=== PATIENT | male | born 1950 | race Caucasian/White ===

== ENCOUNTER 2022-05-17 14:12 | Emergency (ER) | payer OTHER ==
--- OUTSIDE RECORDS SUMMARY | 2022-05-17 14:19 | XMS REPORT | Continuity of Care Document ---
:1950 Author Organization [facility] t Address [address] [place] [address] Care Team Providers Name Role Phone HELLEN MADRIGAL Primary Care Physician Unavailable STEVIE MENDEZ Attending Clinician Unavailable Sosa Cuenca MD Attending Clinician Sosa Contreras RN Attending Clinician Unavailable Cassidy Flaherty RN Attending Clinician Unavailable Nenita Hurst MA Attending Clinician Unavailable Thee Flaherty MD Attending Clinician Mayco Ruby MD Attending Clinician Eve Santiago LVN Attending Clinician Unavailable Radha Oviedo Attending Clinician Wilfrido Villalobos MD Attending Clinician Hal Kaur MD Attending Clinician ELVA OLMEDO Attending Clinician Unavailable Frida Iglesias RN Attending Clinician Unavailable Sera Vasques DPM Attending Clinician Marlene Rodriguez MD Attending Clinician Becky Crawford Attending Clinician Unavailable Elisa Rosen MA Attending Clinician Unavailable Luzma Grover MA Attending Clinician Unavailable Arlene SLAUGHTER, Agustín Attending Clinician Elijah SLAUGHTER, Rashad Attending Clinician Preston SLAUGHTER, Ravinder Attending Clinician Yanira SLAUGHTER, Ashley Espana Attending Clinician Arsh SLAUGHTER, Deisi De Guzman Attending Clinician Payal SLAUGHTER, Dennis Haskins Attending Clinician Herbert SLAUGHTER, Jessica Ayala Attending Clinician Mickey SLAUGHTER, Jez Hilton Attending Clinician MD DEISI CABAN Attending Clinician Unavailable Provider, Unknown Attending Clinician Unavailable MD RASHAD NAVA Attending Clinician Unavailable Renée Medina MA Attending Clinician Unavailable Kashmir MURILLO, Jyoti Attending Clinician Unavailable Yanira SLAUGHTER, Elva Quiroz Attending Clinician MILAN MARTINEZ Attending Clinician Unavailable SEBLE CASTANEDA Attending Clinician Unavailable JADEN EVANS Attending Clinician Unavailable KOSTAS JEROME Attending Clinician Unavailable FUENTES PELAEZ M.D. Attending Clinician Unavailable RACHELL MORALES Attending Clinician Unavailable DEISI CABAN Admitting Clinician Unavailable MD ASHLEY OLMEDO Admitting Clinician Unavailable MD RASHAD NAVA Admitting Clinician Unavailable JADEN EVANS Admitting Clinician Unavailable RAVINDER JOHNSTON Admitting Clinician Unavailable RACHELL MORALES Admitting Clinician Unavailable Payers Payer Name Policy Type Policy Number Effective Date Expiration Date S agustin MEDICARE PART A [id number] \\[id number]\\ [id number] - MEDICARE MEDIGAP - [employer]UTUAL [id number] 2014 [place] 00:00:00 [place] [id number] [facility] TRUE CHOICE MEDIGAP-GENERIC - [id number] 2006 GENERIC PAYOR 00:00:00 Problems Condition Condition Condition Status Onset Resolution Last Treating Co mments Source Name Details Category Date Date Treatment Clinician Date Right Right Disease Active [facility] wrist pain wrist pain 2-04 [facility] 00:[facility] Hospita 00 l Bradycardi Bradycardi Disease Active Overview : Methodi a a 06-[address] 00:00: g of this Hospita 00 note l might be different from the original. Images from the original note were not included. 06/30/[address] Flaherty Septic Septic Disease Active [facility]i arthritis arthritis 06-25 st 00:00: Hospita 00 l Osteopenia Osteopenia Disease Active M ethodi 06-25 st 00:00: Hospita 00 l Vitamin D Vitamin D Disease Active Met hodi deficiency deficiency 06-25 00:00: Hospita 00 l Vasculopat Vasculopat Disease Active Overview : Methodi hy of hy of 06-[address] cardiac cardiac 00:00: g of this Hospi ta allograft allograft 00 note l might be different from the original. Added automatic ally from request for surgery [id number] Abnormal Abnormal Disease Active Overview: Me thodi findings findings 06-[address] on on 00:00: g of this Hospita diagnostic diagnostic 00 note l imaging of imaging of might be heart and heart and different coronary coronary from the circulatio circulatio original. n n Added automatic ally from request for surgery [id number] Syncope Syncope Disease Active Overview: Meth ernestine 06-[address] 00:00: g of this Hospita 00 note l might be different from the original. Added automatic ally from request for surgery [id number] Pyogenic Pyogenic Disease Active Overview: Me thodi arthritis arthritis 06-18 Formattin s t of right of right 00:00: g of this Hos freddy wrist wrist 00 note l might be different from the original. Added automatic ally from request for surgery [id number] Complicati Complicati Disease Active 2018-05 M ethodi on of on of 06-26 st internal internal 00:00: Hospit a right hip right hip 00 l prosthesis prosthesis Elevated Elevated Disease Active Metho di ferritin ferritin 18 st 00:00: Hospita 00 l Age-relate Age-relate Disease Active Overview : Methodi d d 3-[address] osteoporos osteoporos 00:00: g of this Hospita is without is without 00 note l current current might be pathologic pathologic different al al from the fracture fracture original. dexa - osteoporo sis; has severe back issues; He has d/w Neurosx - Dr. Salinas - ? forteoLas t Assessmen t & Plan: Formattin g of this note might be different from the original. Recommend given his multiple co-morbid ities and renal and liver complicat ions to see Dr. Hennessy - Endocrine for evaluatio n of osteoporo sis. Diabetic Diabetic Disease Active 2017-05 Overview: Me thodi polyneurop polyneurop 06-[address] athy athy 00:00: g of this Hospita associated associated 00 note l with type with type might be 2 diabetes 2 diabetes different mellitus mellitus from the original. Not on lyrica s/s to liver and kidney issuesHav ing issues with balance and foot dropLidoc sari at night helps someHas seen neurology - Dr. Piedra - EMG done - and states no solution offeredLa st Assessmen t & Plan: Formattin g of this note might be different from the original. Diabetic shoes and inserts ordered. Foot exam verified by ortho. Ventral Ventral Disease Active Overview: Meth ernestine hernia hernia 11-[address] without without 00:00: g of this Hospi ta obstructio obstructio 00 note l n or n or might be gangrene gangrene different from the original. Trying to wear brace but it is uncomfort able; per his hepatolog ist monitor. Anemia of Anemia of Disease Active 2016-05 Overview: Methodi renal renal 06-[address] disease disease 00:00: g of this Hospi ta 00 note is l different from the original. Lab Results Component Value Date WBC 5.65 8 HGB 12.3 (L) 8 HCT 37.1 (L) 8 MCV 100.5 (H) 8 PLT 213 8 Heart Heart Disease Active Overview: [facility] Hospita orthotopic orthotopic 00 note is l , status , status different from the original. 01/18/2005 Heart-Yoly er transplan t Hemochrom atosisMon o regimen -FKStage 3 CRFImmuno : FK onlyVisit Date Biopsy C4D Treatment Misc & Echo Level 11/25/19 Normal cath no significa nt disease Chest Pain 06/18/20 ClinicA-M ap A-Sure 291.7 BNP 151, SCR 1.36/GFR 52Pt refuses to increase tachBardy monitor Neg for dysrythmi a Eco 60-64 3.2 0.5 BID Light headness 07/15/20 Lab/echoA -[facility] e 321.2 C/o lighthead ness & passing out? BNP 306, Scr 1.34/GFR 53, DSA pendingEK G -NSR at 93, FK ^ Patient refuses to increase FK nor to take prophylac tics. 60-64 mild TR & MRDSAs-ne w Possible 2.6 on FK 0.5BID 06/17/21Ad mitPost cath Call rec/ /07/18/21 Pre-labsR t/Lft CatBX 0 ROrtho ->PM surgD/C Hmecho c BXsurg Patient to proceed with cath/ had black-out BNP 148, Scr 1.51 / GFR 46: Clean Left cath, no noted vasculopa thy nor blockages . Pt. Admitted for ILP recorder for determina tion of pacemaker . Developed severe gout while hospitali zed & R wrist arthrocen tesis performed 06/24/21Bos ton Scientifi c dull chamber pacemaker NasirBP-> amlodipin e & hydralazi ne 60-64 3.2 Echo/DEXA Scan Last Assessmen t & Plan: Formattin g of this note might be different from the original. Follow up with cards for yearly follow up. Immunosupp Immunosupp Disease Active Overview : Methodi ression ression 1-[address] 00:00: g of this Hospita 00 note l might be different from the original. S/s to transplan t on prograf HLD HLD Disease Active Overview: Method i (hyperlipi (hyperlipi 1-[address] demia) demia) 00:00: g of this Hospita 00 note is l different from the original. Not on statin. The 10-year ASCVD risk score (Alexander JHONATHAN Jr., et al., 2013) is: 14.9% Values used to calculate the score: Age: 67 years Sex: Male Is Non-Hispa claire : Yes Diabetic: Yes Tobacco smoker: No Systolic Blood Pressure: 116 mmHg Is BP treated: No HDL Cholester ol: 71 mg/dL Total Cholester ol: 180 mg/dLLab Results Component Value Date CHOLTOTAL 180 8 CHOLTOTAL 196 7 CHOLTOTAL 195 6 Lab Results Component Value Date HDL 71 8 HDL 86 8 HDL 65 7 Lab Results Component Value Date LDLCHOLCA LC 95 8 LDLCHOLCA LC 103 (H) 7 LDLCHOLCA LC 104 6 Lab Results Component Value Date TRIG 47 8 TRIG 67 8 TRIG 158 (H) 7 Last Assessmen t & Plan: Formattin g of this note might be different from the original. LDL is not at goal for DM and d/w pt role of statins; he will discuss this further this cardiolog y and let me know. Coronary Coronary Disease [facility] disease [facility] involving involving 00 [facility] [place] artery of artery of transplant transplant ed heart ed heart without without angina angina pectoris pectoris Hereditary Hereditary Disease Active Overview : Methodi hemochroma hemochroma 02-[address] tosis tosis 00:00: g of this Hospita 00 note l might be different from the original. Dr. Haja chang. Continues with therapeut ic phlebotom y - Last ferritin 100 - last phlebotom y was 2 months ago. 9- due for ferritin check. Last Assessmen t & Plan: Formattin g of this note might be different from the original. Per Dr. Chang. 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 Seeing [facility] Dermatolo gist. Encounter Encounter Disease Active [facility] 3[facility] aftercare 00:00: Medi fernando following following 00 Cent er heart heart transplant transplant Hemolytic Hemolytic Disease Active [facility] anemia anemia 6-12 [facility] 00:[facility] Center CKD CKD Disease Active Overview: Method i (chronic (chronic 4-07 [facility] kidney kidney 00:00: g of this Hospita disease) disease) 00 note is l stage 3, stage 3, different GFR 30-59 GFR 30-59 from the ml/min ml/min original. GFR stable; avoiding nsaids. Due to see Dr. Kaur Lab Results Component Value Date CREATININ E 1.82 (H) 8 States unable to do ZARA and ARB. Last Assessmen t & Plan: Formattin g of this note might be different from the original. Follow up with Dr. Kaur - ? Need to be on ARB - defer to nephrolog y. HCV HCV Disease Active [facility] (hepatitis (hepatitis 2-24 [facility] C virus) C virus) 00:00: Medica l 00 Center Heart Heart Disease Active [facility] transplant transplant 2-24 [facility] ed ed 00:00: Medical 00 Center Status Status Disease Active Overview: Method i post liver post liver 2-24 [facility] transplant transplant 00:00: g of this Hospita ation ation 00 note l might be different from the original. Followed by Dr. Danielle S/s to ETOH, hemachrom atosis and hep CHep C treated with harvoniLa st Assessmen t & Plan: Formattin g of this note might be different from the original. Per hepatolog y AK AK Disease Active [facility] (actinic (actinic 01-01 Colleg e keratosis) keratosis) 00:00: of 00 Medicin e Benign Benign Disease Active [facility] neoplasm neoplasm 8 Colleg e of other of other 00:00: of specified specified 00 [facility] prem sites of sites of e skin skin Keratosis Keratosis Disease Active [place] [facility] seborrheic seborrheic 8 Co llege a a 00:00: of 00 Medicin e Personal Personal Disease Active [facility] r history of history of 8 Co llege skin skin 00:00: of cancer cancer 00 Medicin e Keratosis Keratosis Disease Active [place] [facility] seborrheic seborrheic 8-11 Co llege a a 00:00: of 00 Medicin e Dermatitis Dermatitis Disease Active 2012-05 [place] seborrheic seborrheic 1-20 Co llege a a 00:00: of 00 Medicin e Gout due Gout due Disease Active 2012-05 Overview: Me thodi to renal to renal 0-[address] impairment impairment 00:00: g of this Hospita , multiple , multiple 00 note l sites sites might be different from the original. Takes colcrys as needed.la st UA elevatedR wrist arthrocen tesis performed 06/24/21 Jez Arevalo MD OrthoLast Assessmen t & Plan: Formattin g of this note might be different from the original. Not able to take NSAIDS or steroids. Continue on colchicin e. Other Other Disease Active [facility] specified specified 3-06 [facility] malignant malignant 00:00: of neoplasm neoplasm 00 Medici n of skin of of skin of e other and other and unspecifie unspecifie d parts of d parts of face face Other Other Disease Active [facility] specified specified 3-06 Cem ege malignant malignant 00:00: of neoplasm neoplasm 00 Medici n of scalp of scalp e and skin and skin of neck of neck Actinic Actinic Disease Active [facility] keratosis keratosis 12-02 Cem ege 00:00: of 00 Medicin e Neoplasm Neoplasm Disease Active [facility] r of of 12-02 College uncertain uncertain 00:00: of behavior behavior 00 Medici n of skin of skin e Personal Personal Disease Active [facility] history of history of 12-02 Co llege other other 00:00: of malignant malignant 00 Medi prem neoplasm neoplasm e of skin of skin Lentigo Lentigo Disease Active [facility] 12-02 [place] 00:00: of 00 Medicin e Other Other Disease Active [facility] seborrheic seborrheic 12-02 Co llege keratosis keratosis 00:00: of 00 Medicin e Other Other Disease Active [facility] seborrheic seborrheic 12-02 Co llege keratosis keratosis 00:00: of 00 Medicin e Nonspecifi Nonspecifi Disease Active 2006-05 Overview : Methodi c abnormal c abnormal 0-[address] results of results of 00:00: g of this Hospita liver liver 00 note l function function might be study study different from the original. S/s to transplan t and meds and hemachrom atosis. ALCOHOL ALCOHOL Disease Active 2006-[address] [facility] ABUSE ABUSE 0-25 College 00:00: of 00 Medicin e ABDOMINAL ABDOMINAL Disease Active [facility] PAIN PAIN -14 [place] 00:00: of 00 Medicin e INJURY, INJURY, Disease Active [facility] NERVE NERVE 14 [place] ROOT/PLEXU ROOT/PLEXU 00:00: of S NOS S NOS 00 Medicin e ANEMIA, ANEMIA, Disease Active [facility] CHRONIC CHRONIC -14 College 00:00: of 00 Medicin e RENAL RENAL Disease Active [facility] INSUFFICIE INSUFFICIE -14 Co llege NCY NCY 00:00: of 00 Medicin e SPLENOMEGA SPLENOMEGA Disease Active [facility] LY LY -14 [place] 00:00: of 00 Medicin e HYPERSPLEN HYPERSPLEN Disease Active [facility] ISM ISM -14 [place] 00:00: of 00 Medicin e LIVER LIVER Disease Active [facility] TRANSPLANT TRANSPLANT 1-12 Co llege ATION HX ATION HX 00:00: of OF OF 00 Medicin e HEART HEART Disease Active [facility] TRANSPLANT TRANSPLANT 1-12 Co llege ATION HX ATION HX 00:00: of OF OF 00 Medicin e HEPATITIS HEPATITIS Disease Active [facility] C CHRONIC C CHRONIC 1-12 Cem ege 00:00: of 00 Medicin e VENTRAL VENTRAL Disease Active [facility] HERNIA HERNIA 1-12 College 00:00: of 00 Medicin e Type 2 Type 2 Disease Active Overview: Method i diabetes diabetes 3-[address] mellitus mellitus 00:00: g of this Hos freddy with with 00 note is l diabetic diabetic different neuropathy neuropathy from the original. Results for SOSA VELASCO ( ) as of 06/23/2017 11:01 Ref. Range 12/15/2013 09:28 03/27/2014 09:09 04/24/2016 10:04 7 15:38 Hemoglobi n A1C Latest Ref Range: <5.7 % of total Hgb 6.2 (H) 6.4 (H) 6.0 (H) 5.7 (H) Lantus 28 units a dayDoes not take any SA insulinPr eviously Managed by Dr. George enriquez. CX: kidney disease, neuropath yLog reviewed - he concerned needs premeal insulin to cover spikesHas had low sugar events when bg in 80s4/18 - BG have been well controlle d now; due to see eye specialis t. Last A1c 5.711.201 8- checks his sugars at 10 AM; if his sugars >140 he will give himself lantus- eye exam overdueLa b Results Component Value Date HGBA1C 5.7 (H) 7 07/2018- AM fastin- blood sugars post meals <120- lantus 10 units- eye exam : dr. Jimenez - No retinopat hy 07/20/2018 - foot - ordered diabetic shoes and inserts todayLab Results Component Value Date HGBA1C 5.8 (H) 8 Last Assessmen t & Plan: Formattin g of this note might be different from the original. Not taking lantus daily; sugars have been borderlin e; will repeat A1c. D/w pt to decrease lantus to 5 units 9 pm. D/w to check sugars at least 3 times a day. DIABETIC DIABETIC Disease Active 2005- [facility] PERIPHERAL PERIPHERAL 3-22 Co llege NEUROPATHY NEUROPATHY 00:00: of 00 Medicin e HEMOCHROMA HEMOCHROMA Disease Active B h[facility] VERGARA 2-03 College 00:00: of 00 Medicin e DIABETES DIABETES Disease Active [facility] MELLITUS MELLITUS 2-03 Colleg e 00:00: of 00 Medicin e History of History of Disease Active Overview : Methodi hepatitis hepatitis Formattin s t C C g of this Hospita note l might be different from the original. treated with harvoniLa st Assessmen t & Plan: Formattin g of this note might be different from the original. Per liver. Essential Essential Disease Active Overview: Methodi hypertensi hypertensi Formattin st on on g of this Hospita note l might be different from the original. . PM placed 06/30/2021 mlodipine 5 Hydralazi ne 25 mg TIDLast Assessmen t & Plan: Formattin g of this note might be different from the original. Continue on coreg. Osteoarthr Osteoarthr Disease Active Overview : Methodi itis itis Formattin st g of this Hospita note l might be different from the original. wrist, hands, index finger; affecting his quality of life; states she saw multiple ortho and specilist and he states he not wiling to do steroid injection s2016- Rt. Hip replaceme nt - Incavoa History of History of Problem Resolve [facility] diabetes diabetes d Physic i mellitus mellitus ans History of History of Problem Resolve [place] osteoporos osteoporos d Ph ysici is is ans History of History of Problem Resolve [place] hypertensi hypertensi d Ph ysici on on ans History of History of Problem Resolve [facility] kidney kidney d Physici stones stones ans Right knee Right knee Problem Active U T pain pain Physici ans Primary Primary Problem Active [facility] localized localized Phys ici osteoarthr osteoarthr an s itis of itis of right knee right knee Left knee Left knee Problem Active [facility] pain pain Physici ans Primary Primary Problem Active [facility] localized localized Phys ici osteoarthr osteoarthr an s itis of itis of left knee left knee Artificial Artificial Problem Active U T joint joint Physici pain, pain, ans initial initial encounter encounter Periprosth Periprosth Problem Active U T etic etic Physici osteolysis osteolysis an s of of internal internal prosthetic prosthetic right hip right hip joint joint Allergies, Adverse Reactions, Alerts Allergy Allergy Status Severity Reaction(s) Onset Inactive Treating Comm ents Source Name Type Date Date Clinician Cefepime Propensi Active Other (See Panic Me thodi ty to Comments) [address] adverse 00:00: during Hospita reaction 00 infusion l s to drug Lmw Propensi Active 2020-[address] [facility] Heparin ty to 0-13 College adverse 00:00: of reaction 00 Medicin s to e drug Tramadol Propensi Active GI Method i ty to Intolerance 10-22 st adverse 00:00: Hospita reaction 00 l s to drug Prometha Propensi Active Other (See 2015-05 Muscle Me thodi zine Hcl ty to Comments) [address] adverse 00:00: Hospita reaction 00 l s to drug HEPARIN Allergy Active High Anaphylaxis [facility] 9 00:00: 00 LISINOPR Allergy Active Swelling [facility] [place] 9-26 00:00: 00 OTHER Allergy Active [facility] 02-16 00:00: 00 Heparin Propensi Active Anaphylaxis [facility] adverse [facility]: Medical reaction 00 Center s Lisinopr Propensi Active Swelling swollen [facility] to 02[facility]16 tongue [facility] adverse [facility]: Medical reaction [facility] Center s Other Propensi Active HEPARIN. [facility] ty to 02-16 [facility] adverse 00:00: may cause Medica l reaction 00 his blood Cente r s to coagulate Prometha Propensi Active Other (See Muscle Me thodi zine ty to Comments) [address] adverse 00:00: paralysis Hospit a reaction 00 l s to drug Heparin Propensi Active Methodi ty to 12-04 st adverse 00:00: Hospita reaction 00 l s to drug Lisinopr Propensi Active Swelling swollen Met hodi il ty to 12-[address] adverse 00:00: Hospita reaction 00 l s to drug Prometha Propensi Active Other (See Other Ba ylor zine ty to Comments) 3-14 reaction( Cem ege adverse 00:00: s): Other of reaction 00 (See Medicin s to Comments) e drug , Other (See Comments) Muscle paralysis paralysis Muscle paralysis paralysis Muscle paralysis paralysis Loss of motor skills PROMETHA Allergy Active Other [facility] ZINE 3-14 00:00: 00 Prometha Drug Active Other (See Muscle [facility] zine Allergy Comments) 3-14 paralysis [facility] 00:00: paralysis Medical 00 Muscle Center paralysis paralysis Lisinopr Propensi Active Anaphylaxis 2014-05 swollen [place] il ty to 1-18 tongue College adverse 00:00: swollen of reaction 00 tongue Medicin s to e drug HEPARIN Allergy Active High Anaphylaxis SLE H ANALOGUE 3-03 S 00:00: 00 Heparin Propensi Active Anaphylaxis [facility] ty to 303 [facility] adverse 00:00: Medical reaction 00 Center s Heparin Propensi Active Anaphylaxis Ba ylor ty to 5-24 College adverse 00:00: of reaction 00 Medicin s to e drug Prometha Propensi Active Other (See Muscle Ba ylor zine Hcl ty to Comments) 524 paralysis Co llege adverse 00:00: of reaction 00 Medicin s to e drug Ge Propensi Active HEPARIN. [facility] Uncoded ty to 06-15 SHOCKHEME Colleg e Allergy adverse 00:00: may cause of reaction 00 his blood Medic in s to e coagulate LMW Allergy Active [facility] Heparin to drug Physici (finding ans ) Phenerga Allergy Active [facility] n to drug Physici (finding ans ) Family History Family Member Diagnosis Comments Start Date Stop Date Source Father Family history of [facility] Phys icians diabetes mellitus Father Family history of [facility] hypertension Father Family history of [facility] arthritis Natural father COPD [facility] father Heart disease [facility] Natural mother Breast cancer [facility] Natural mother Cancer [facility] mother Diabetes [facility] mother Hypertension [facility] Natural sister Breast cancer [facility] Social History Social Habit Start Date Stop Date Quantity Comments Source Exposure to Not sure [facility] of SARS-CoV-2 (event) Medici ne Cigarette 2022-03-31 2022-03-31 [facility] pack-years 00:00:00 00:00:00 Hospital Alcohol intake 2022-03-31 2022-03-31 Ex-drinker [facility] 00:00:00 00:00:00 (finding) Hospital Cigarettes smoked 2022-03-31 2022-03-31 [facility] current (pack per 00:00:00 00:00:00 Hospita l day) - Reported History SDKY 2020-06-18 2020-06-18 4 [facility] Alcohol Frequency 00:00:00 00:00:00 Hospita l History SDOH 2020-06-18 2020-06-18 1 [facility] Alcohol Std Drinks 00:00:00 00:00:00 Hospit al History SDOH 2020-06-18 2020-06-18 1 [facility] Alcohol Binge 00:00:00 00:00:00 Hospital Tobacco use and 2014-07-24 2014-07-[address] [facility] exposure 00:00[facility]00 [facility] History of tobacco 1968-05-24 1969-05-24 Current smoker [facility] use 00:00:00 00:00:00 Hospital Sex Ass[birth year] At [birth year] M[facility] 00:00:00 [facility]:00 [facility] Smoking Status Start Date Stop Date Source Never smoked tobacco [facility] Ex-smoker 2022-03-31 00:00:00 2022-03-31 00:00:00 [facility] Medications Ordered Filled Start Stop Current Ordering Indication Dosage Frequency Signature Comments Components Source Medication Medication Date Date Medication? Clinician (SIG) Name Name tacrolimus 2021-05- Yes [id number] 1mg Q.5D Take 1 [facility] (PROGRAF) 1 06-24 capsule (1 s t MG capsule 00:00: 05:59 mg total) H ospita 00 :00 by mouth 2 l (two) times a day. DX: Z94.1 heart & Z94.4 Liver transplant 01/15/2005 carvediloL 2021-05- Yes 12.5mg Q.5D Take 1 Me [facility] (Coreg) 1-18 11-[address] 12.5 MG 00:00: 05:59 (12.5 mg Hospi ta tablet 00 :00 total) by l mouth 2 (two) times a day with meals. tacrolimus 2021-05- Yes [id number] .5mg Q.5D Take 1 [facility] (PROGRAF) 1-18 11-[address] 0.5 MG 00:00: 05:59 (0.5 mg Hospita capsule 00 :00 total) by l mouth 2 (two) times a day. tacrolimus 2021-05- No [id number] .5mg Q.5D Take 1 [facility] (PROGRAF) 1-15 11-[address] 0.5 MG 00:00: 00:00 (0.5 mg Hospita capsule 00 :00 total) by l mouth 2 (two) times a day. carvediloL 2021-05- No 12.5mg Q.5D Take 1 [facility] (Coreg) 1-15 11-[address] 12.5 MG 00:00: 00:00 (12.5 mg Hospi ta tablet 00 :00 total) by l mouth 2 (two) times a day with meals. flash 2021-05 Yes [id number] 1 sensor [facility] glucose 1-[address] sensor 00:00: 14 days Hospita (FreeStyle 00 l Jewel 2 Sensor) kit flash 2021-05 Yes [id number] 1 sensor Meth ernestine glucose 1-[address] sensor 00:00: 14 days Hospita (FreeStyle 00 l Jewel 14 Day Sensor) kit diazePAM 2021-05 Yes 2mg Take 1 [facility] (Valium) 2 1-08 tablet (2 st MG tablet 00:00: mg total) Hos freddy 00 by mouth l once as needed for anxiety (prior to MRI) for up to 1 dose. NovoLOG 2021-05 Yes [id number] INJECT 4 Me thodi Flexpen 0-[address] U-100 00:00: SUBCUTANEO Hospit a Insulin 100 00 USLY THREE l unit/mL (3 TIMES mL) insulin DAILY WITH pen MEALS insulin 2021-05- No [id number] 4U Q.[id number] Inject [facility] ASPART 0-05 10-12 [id number] 0.04 mL (4 st (NovoLOG) 00:00: 00:00 3D Units Hospit a 100 unit/mL 00 :00 total) l (3 mL) under the insulin pen skin 3 (three) times a day with meals. tacrolimus Yes .5mg Take 0.5 [place] [facility] (PROGRAF) 9-28 mg by [facility] 0.5 MG 11:34: mouth two of capsule 13 times Medicin daily. e Colchicine Yes .6mg Take 0.6 [place] [facility] 0.6 MG CAPS 9-28 mg by College 11:34: mouth. of 13 Medicin e Insulin Yes as needed. [facility] Glargine 9-28 College (LANTUS 11:34: of SOLOSTAR) 13 Medicin 100 UNIT/ML e SOPN gabapentin 2021- No [id number] 100mg Q.[id number] Take 1 [facility] (NEURONTIN) 8-04 10-[id number] 100 mg 00:00: 00:00 3D (100 mg Hospita capsule 00 :00 total) by l mouth 3 (three) times a day. insulin 2021- No INJECT 3 Metho di ASPART 6-22 10-[address] (NovoLOG) 00:00: 00:00 UNDER THE Ho spita 100 unit/mL 00 :00 SKIN THREE l (3 mL) TIMES insulin pen DAILY WITH A MEAL flash Yes [id number] 1{devic QD 1 Device M ethodi glucose 5-24 e} daily. st scanning 00:00: Hospita reader 00 l (FreeStyle Jewel 14 Day Robbins) misc flash 2021- No [id number] 1 sensor Met hodi glucose 5-24 11-[address] sensor 00:00: 00:00 14 days Hospita (FreeStyle 00 :00 l Jewel 14 Day Sensor) kit flash 2021- No [id number] 1{patch 1 patch M ethodi glucose 5-12 05-13 } once for 1 st scanning 00:00: 04:59 dose. Hospita reader 00 :00 l (FreeStyle Jewel 10 Day Robbins) [facility] pen needle, 2021- No [id number] 1{pen} Q.25D 1 pen 4 [facility] diabetic 31 09-22 (four) st gauge x 00:00: 00:00 times a Hospit a 08/06" 00 :00 day. l needle blood sugar Yes [id number] 1{strip QD 1 strip [facility] diagnostic 3-01 } daily. st strips 00:00: Hospita (FreeStyle 00 l Precision Juan Manuel Strips) strip test strips insulin 2022- No [id number] 3U Q.[id number] Inject [facility] ASPART 07-16 [id number] 0.03 mL (3 st (NovoLOG) 00:00: 04:59 3D Units Hospit a 100 unit/mL 00 :00 total) l (3 mL) under the insulin pen skin 3 (three) times a day with meals for 90 days. insulin 2021- No Inject [facility] GLARGINE 07-15- under the st (Lantus 11:53: 00:00 skin as Hospit a Solostar 45 :00 needed. l U-100 Inject 0 Insulin) to 4 units 100 unit/mL subcutaneo injection usly once (pen) daily in the morning based on sliding scale. insulin 2022- No [id number] 12U QD Inject Met hodi GLARGINE 07-[address] (Lantus 00:00: 05:59 (12 Units Hosp stephanie Solostar 00 :00 total) l U-100 under the Insulin) skin 100 unit/mL daily. injection Inject 0 (pen) to 4 units subcutaneo usly once daily in the morning based on sliding scale. insulin 2021- No [id number] 3U Q.[id number] Inject [facility] ASPART 07-15 [id number] 0.03 mL (3 st (NovoLOG) 00:00: 00:00 3D Units Hospit a 100 unit/mL 00 :00 total) l (3 mL) under the insulin pen skin 3 (three) times a day with meals for 90 days. tacrolimus 2021- No [id number] TAKE ONE [facility] (PROGRAF) 2-18 11-[address] 0.5 MG 00:00: 00:00 MOUTH Hospita capsule 00 :00 TWICE A l DAY carvediloL 2021- No 12.5mg Q.5D Take 1 Me thodi (Coreg) 2-16 11-[address] 12.5 MG 00:00: 00:00 (12.5 mg Hospi ta tablet 00 :00 total) by l mouth 2 (two) times a day with meals. carvediloL 2021- No 12.5mg Q.5D Take 12.5 [facility] (COREG) 07-02 02-[address] 12.5 MG 13:46: 00:00 mouth 2 Hospit a tablet 01 :00 (two) l times a day. carvedilol 2021- No 20mg QD Take 20 mg Method[facility] CR (Coreg 07-02- by mouth st CR) 20 MG 13:46: 00:00 daily. Hospi ta 24 hr 01 :00 Patient l capsule will check and confirm the dose; He will bring dose on Wednesday06/23/21. He thinks it is 20 mg a day. amLODIPine 2021- No 5mg QD Take 1 Meth ernestine (NORVASC) 5 07-02- tablet (5 st mg tablet 00:00: 00:00 mg total) Ho spita 00 :00 by mouth l daily. amLODIPine 2021- No 5mg QD Take 1 Meth ernestine (NORVASC) 5 07-02- tablet (5 st mg tablet 00:00: 00:00 mg total) Ho spita 00 :00 by mouth l daily for 30 days. colchicine 2021- No .6mg Q24H Take 0.6 Me thodi 0.6 mg 07-01-[address] capsule 13:46: 00:00 mouth Hospita 52 :00 daily as l needed. colchicine Yes Take 2 Metho di 0.6 mg 2-[address] tablet 00:00: onset of Hospita 00 acute l flare up May repeat x one dose after 2 hrs if needed Max 3 tabs in one day magnesium Yes 1{tbl} Q.5D Take 1 Meth ernestine oxide 420 2-[address] mg tablet 00:00: mouth 2 Hospi ta 00 (two) l times a day. tacrolimus 2021- No [id number] 1mg QD Take 1 [facility] (PROGRAF) 1 07-01 capsule (1 s t MG capsule 00:00: 00:00 mg total) H ospita 00 :00 by mouth l daily. HYDROcodone 2021- No [id number] 1{tbl} Q8H Take 1 [facility] -acetaminop 07-[address] hen (NORCO) 00:00: 05:59 mouth Hosp stephanie 5-325 mg 00 :00 every 8 l per tablet (eight) hours as needed for severe pain for up to 10 days .acute pain. Max Daily Amount: 3 tablets tacrolimus 2021- No [id number] .5mg QD Take 1 [facility] (PROGRAF) 07-01-[address] 0.5 MG 00:00: 00:00 (0.5 mg Hospita capsule 00 :00 total) by l mouth daily. hydrALAZINE 2021- No 25mg Q.[id number] Take 1 [facility] (APRESOLINE 07-01 [id number] tablet (25 st ) 25 MG 00:00: 00:00 3D mg total) Hosp stephanie tablet 00 :00 by mouth l every 8 (eight) hours for 30 days. doxycycline 2021- No 100mg Q.5D Take 1 Me thodi (VIBRAMYCIN 07-01-[address] ) 100 MG 00:00: 05:59 (100 mg Hospi ta capsule 00 :00 total) by l mouth 2 (two) times a day with meals for 7 days. tacrolimus 2021- No [id number] 1mg QD Take 1 [facility] (PROGRAF) 1 07-01-08 capsule (1 s t MG capsule 00:00: 00:00 mg total) H ospita 00 :00 by mouth l daily for 30 days. tacrolimus 2021- No [id number] 1mg Q.5D Take 1 [facility] (PROGRAF) 1 07-01- capsule (1 s t MG capsule 00:00: 00:00 mg total) H ospita 00 :00 by mouth 2 l (two) times a day. acetylcyste 2021- No 600mg Q.5D Take 600 [facility] ine (NAC) 06-18-[address] 600 mg 15:52: 00:00 mouth 2 Hospita capsule 22 :00 (two) l times a day. acetylcyste 2021- No 600mg Q.5D Take 1 Me thodi ine (NAC) 06-18-[address] 600 mg 00:00: 05:59 (600 mg Hospita capsule 00 :00 total) by l mouth 2 (two) times a day for 2 days. hydrALAZINE 2020-05- No 50mg Q.[id number] Take 2 [facility] (APRESOLINE 07-[id number] ) 25 MG 00:00: 00:00 3D (50 mg Hospita tablet 00 :00 total) by l mouth 3 (three) times a day for 30 days. Skip dose if systolic BP is less than 120. tacrolimus 2020-05- No [id number] . Z94.1 [facility] (PROGRAF) 07-[address] 0.5 MG 00:00: 00:00 transplant Hosp stephanie capsule 00 :00 l Colchicine 2020-05 Yes .6mg Take 0.6 [place] [facility] 0.6 MG CAPS 0-13 mg by College 09:28: mouth. of 02 Medicin e Insulin 2020-05 Yes as needed. [facility] Glargine 0-13 [facility] (LANTUS 09:28: of SOLOSTAR) 02 Medicin 100 UNIT/ML e SOPN pregabalin 2020-05 Yes Take by [facility] or (LYRICA) 0-13 mouth. [place] 300 MG 09:28: of capsule 02 Medicin e pregabalin 2020-05 Yes Take by [facility] (LYRICA) 0-13 mouth. [place] 300 MG 09:28: of capsule 02 Medicin e fluorouraci 2020-05 Yes Apply Lizandro l (EFUDEX) 0-13 topically Cem ege 5 % cream 00:00: to of 00 affected Medicin area twice e a day for 2-4 weeks calcipotrie 2020-05 Yes 1{appli Apply 1 Lizandro ne 0-13 cation} applicatio Colleg e (DOVONOX) 00:00: n of 0.005 % 00 topically Medicin cream two times e daily. fluorouraci 2020-05 Yes Apply Lizandro l (EFUDEX) 0-13 topically Cem ege 5 % cream 00:00: to of 00 affected Medicin area twice e a day for 2-4 weeks calcipotrie 2020-05 Yes 1{appli Apply 1 [facility] ne 0-13 cation} applicatio [facility] (DOVONOX) 00:00: n of 0.005 % 00 topically Medicin cream two times e daily. Glucose 2019-0 Yes Free Style [facility] or Blood 10-18 LIte test College Strips 00:00: strips. of ([employer] 00 Test 3 x Medicin BLOOD daily. Dx: e GLUCOSE E11.9, TEST) Z79.4 Glucose Yes Free Style [facility] or Blood 10-18 LIte test College Strips 00:00: strips. of ([employer] 00 Test 3 x Medicin BLOOD daily. Dx: e GLUCOSE E11.9, TEST) Z79.4 blood sugar 2021- No Free Style [facility] diagnostic 10-[address] strips 00:00: 00:00 strips. Hospita (glucose 00 :00 Test 3 x l blood) daily. Dx: strip test E11.9, strips Z79.4 tacrolimus Yes .5mg Take 0.5 [place] [facility] (PROGRAF) 3-10 mg by [place] 0.5 MG 16:19: mouth two of capsule 04 times Medicin daily. e tacrolimus 2020-0 Yes .5mg Take 0.5 [place] [facility] (PROGRAF) 3-10 mg by College 0.5 MG 16:19: mouth two of capsule 04 times Medicin daily. e tacrolimus 2020-0 Yes .5mg Take 0.5 [place] [facility] (PROGRAF) 3-10 mg by College 0.5 MG 11:19: mouth two of capsule 04 times Medicin daily. e tacrolimus 2020-0 Yes .5mg Take 0.5 [place] [facility] (PROGRAF) 3-10 mg by College 0.5 MG 11:19: mouth two of capsule 04 times Medicin daily. e pen needle, 2021- No [id number] Use one Methodi diabetic 32 5-29 10-05 daily with s t gauge x 00:00: 00:00 [facility] 05/27" needle 00 :00 pen. l carvedilol Yes Lizandro (COREG) 25 4-28 College MG tablet 00:00: of 00 Medicin e carvedilol Yes [facility] (COREG) 25 4-28 College MG tablet 00:00: of 00 Medicin e carvedilol Yes [facility] (COREG) 25 4-28 College MG tablet 00:00: of 00 Medicin e carvedilol Yes [facility] (COREG) 25 4-28 College MG tablet 00:00: of 00 Medicin e carvedilol Yes [facility] (COREG) 25 4-28 College MG tablet 00:00: of 00 Medicin e LANTUS Yes 20U QD [address] [facility] SOLOSTAR 2-22 every [facility] 100 unit/mL 00:00: morning . M edical (3 mL) In 00 Center predniSONE predniSONE Yes M.A. [place] 5 MG Oral 5 MG Oral Physi ci Tablet Tablet ans Lyrica CAPS Lyrica CAPS Yes M.A. U T Physici ans Coreg TABS Coreg TABS Yes M.A. [place] Physici ans Prograf 0.5 Prograf 0.5 Yes M.A. U T MG Oral MG Oral Physici Capsule Capsule ans Immunizations Ordered Immunization Filled Immunization Date Status Commen ts Source Name Name Creabilis >12 YR 2022-03-18 Completed [facility] COVID-19 MRNA 00:00:00 Hospital BIVALENT VACCINATION PFIZER READY TO USE 2021-07-10 Completed [facility] dist COVID-19 MRNA 00:00:00 Hospital VACCINATION PFIZER COVID-19 MRNA 2021-04-28 Completed Meth odist VACCINATION 00:00:00 Hospital FLUCELVAX QUAD PF 2021-03-[address] 00:00:00 Hospital PFIZER COVID-19 MRNA 2021-01-07 Completed Meth odist VACCINATION 00:00:00 Hospital PFIZER COVID-19 MRNA 2020-08-27 Completed Meth odist VACCINATION 00:00:00 Hospital PFIZER COVID-19 MRNA 2020-08-06 Completed Meth odist VACCINATION 00:00:00 Hospital FLUZONE HIGH-DOSE PF 2020-04-15 Completed Meth odist 00:00:00 Hospital FLUCELVAX QUAD PF 2020-04-[address] 00:00:00 Hospital FLUZONE HIGH-DOSE PF 2019-02-27 Completed Meth odist 00:00:00 Hospital FLUZONE QUAD 2019-01-23 Completed [facility] 00:00:00 Hospital FLUZONE HIGH-DOSE PF 2018-03-08 Completed Meth odist 00:00:00 Hospital FLUZONE QUAD 2018-03-06 Completed [facility] 00:00:00 Hospital FLUZONE HIGH-DOSE PF 2017-03-15 Completed Meth odist 00:00:00 Hospital FLUZONE HIGH-DOSE PF 2016-03-21 Completed Meth odist 00:00:00 Hospital Pneumococcal 2015-07-[address] [facility] Conjugate (Prevnar) 00:00:00 [facility] 13-Valent Pneumococcal 2015-07-29 Completed [facility] Conjugate 13-Valent 00:00:00 Hospi edward FLUZONE HIGH-DOSE PF 2015-03-04 Completed Meth odist 00:00:00 Hospital Influenza Trivalent 2015-02-06 Completed [facility] 00:00:00 Hospital Influenza (whole) 2015-02-06 Completed [facility] 00:00:00 of Medicine Influenza (whole) 2015-02-06 Completed [facility] 00:00:00 of Medicine Influenza (whole) 2015-02-06 Completed [facility] 00:00:00 of Medicine Influenza (whole) 2015-02-06 Completed [facility] 00:00:00 of Medicine Influenza (whole) 2015-02-06 Completed [facility] 00:00:00 of Medicine Influenza Trivalent 2010-02-21 Completed [facility] 00:00:00 Hospital Influenza (whole) 2010-02-21 Completed [facility] 00:00:00 of Medicine Influenza (whole) 2010-02-21 Completed [facility] 00:00:00 of Medicine Influenza (whole) 2010-02-21 Completed [facility] 00:00:00 of Medicine Influenza (whole) 2010-02-21 Completed [facility] 00:00:00 of Medicine Influenza (whole) 2010-02-21 Completed [facility] 00:00:00 of Medicine Pneumococcal 2009-02-21 Completed [facility] Polysaccharide 00:00:00 Hospital Pneumococcal 2009-02-[address] [facility] Colle ge Polysaccharide 00:00:00 of Medicin e Pneumococcal 2009-02-21 Completed [facility] Colle ge Polysaccharide 00:00:00 of Medicin e Pneumococcal 2009-02-[address] [facility] Colle ge Polysaccharide 00:00:00 of Medicin e Pneumococcal 2009-02-21 Completed [facility] Colle ge Polysaccharide 00:00:00 of Medicin e Pneumococcal 2009-02-21 Completed [facility]andro Colle ge Polysaccharide 00:00:00 of Medicin e Vital Signs Vital Name Observation Time Observation Value Comments Source Body height 2022-02-18 16:34:00 185.4 cm [facility] Body weight 2022-02-18 16:34:00 81.647 kg [facility] BMI 2022-02-18 16:34:00 23.75 kg/m2 [facility] Body height 2021-03-05 14:28:00 185.4 cm [facility] Body weight 2021-03-05 14:28:00 82.555 kg [facility] BMI 2021-03-05 14:28:00 [facility]01 [facility] Systolic blood 2019-08-01 16:19:00 122 mm[Hg] [facility] pressure Medicine Diastolic blood 2019-08-01 16:19:00 87 mm[Hg] [facility] pressure Medicine Heart rate 2019-08-01 16:19:00 87 /min [facility] Body height 2019-08-01 16:19:00 188 cm [facility] Body weight 2019-08-01 16:19:00 90.719 kg [facility] BMI 2019-08-01 16:19:00 25.68 kg/m2 [facility] Systolic blood 2022-04-08 23:05:00 146 mm[Hg] [facility] pressure Diastolic blood 2022-04-08 23:05:00 93 mm[Hg] [facility] pressure Heart rate 2022-04-08 23:05:00 87 /min [facility] Oxygen saturation in 2022-04-08 23:05:00 95 /min [facility] Arterial blood by Pulse oximetry Respiratory rate 2022-04-08 21:50:00 18 /min [facility] Body height 2022-04-08 20:58:[address] [facility] Body weight 2022-04-08 20:58:[address] [facility] BMI 2022-04-08 20:58:00 24.28 kg/m2 [facility] Body temperature 2021-07-09 16:32:00 36.11 Tiny [facility] Procedures Procedure Date / Time Performing Clinician Source Performed MOHS SURGERY 2022-04-24 11:45:24 [facility] SKIN REPAIR 2022-04-24 11:45:24 [facility] DERMATOPATHOLOGY REPORT 2022-04-24 10:18:00 [facility] SKIN EXCISION 2022-04-24 10:16:49 [facility] SKIN REPAIR 2022-04-24 10:16:49 [facility] SR1 AND REPAIR 2022-04-24 10:01:31 [facility] MOHS SURGERY OP 2022-04-24 10:01:31 [facility] ALPHA FETOPROTEIN 2022-04-21 14:30:00 Sosa Cuenca [facility] CBC WITH PLATELET AND 2022-04-21 14:30:00 Sosa Cuenca [facility] DIFFERENTIAL COMPREHENSIVE METABOLIC 2022-04-21 14:30:[address] [facility] PANEL FERRITIN LEVEL 2022-04-21 14:30:00 Sosa Cuenca ospital TOTAL IRON BINDING 2022-04-21 14:30:[address] [facility] CAPACITY LIPID PANEL 2022-04-21 14:30:00 Sosa Cuenca ospital CV CARMEN PROCEDURE 2022-04-08 23:37:[address] [facility] PACEMAKER EVALUATION MRI IAC WO CONTRAST 2022-04-08 23:02:00 Mayco Ruby [facility] XR CHEST 2 VW 2022-04-08 20:56:[address] [facility] spital COMPREHENSIVE METABOLIC 2022-02-19 13:52:00 Manuel [facility] PANEL CBC WITH PLATELET AND 2022-02-19 13:52[facility] PARATHY[facility] HORMONE 2022-02-19 13:52:00 Manuel, [facility] URINALYSIS, AUTOMATED WITH 2022-02-19 13:52:00 Manuel, [facility] MICROSCOPY URIC ACID LEVEL 2022-02-19 13:52:00 Manuel Hal [facility] Ho spital PROTEIN, URINE, RANDOM 2022-02-19 13:52:00 Manuel [facility] CREATININE LEVEL, URINE, 2022-02-19 13:52:00 Manuel [facility] RANDOM PHOSPHORUS LEVEL 2022-02-19 13:52:00 [facility] / NAIL BIOPSY 2022-02-18 17:06:29 Elva Olmedo [facility] SKIN / NAIL BIOPSY 2022-02-18 17:06:26 Elva Olmedo [facility] CT TANGENTIAL BIOPSY SKIN 2022-02-18 16:50:49 [facility] SINGLE LESION Medicine CT TANGENTIAL BIOPSY SKIN 2022-02-18 16:50:49 [facility] EA SEP/ADDITIONAL LESION Medicin e SKIN / NAIL BIOPSY 2022-02-18 12:06:29 [facility] SKIN / NAIL BIOPSY 2022-02-18 12:06:26 [facility] DERMATOPATHOLOGY REPORT 2022-02-18 12:06:00 [facility] DERMATOPATHOLOGY REPORT 2022-02-18 12:00:00 [facility] XR FOOT 3 VW BILATERAL 2021-12-25 13:52:[address] [facility] BASIC METABOLIC PANEL 2021-12-22 13:32:00 Manuel [facility] CBC WITH PLATELET AND 2021-12-22 13:32:00 Manuel [facility] DIFFERENTIAL FERRITIN LEVEL 2021-12-22 13:32:00 Manuel [facility] spital TOTAL IRON BINDING 2021-12-22 13:32:00 Manuel [facility] CAPACITY MAGNESIUM LEVEL 2021-12-22 13:32:00 Manuel [facility] spital PARATHYROID HORMONE 2021-12-22 13:32:00 Manuel [facility] PHOSPHORUS LEVEL 2021-12-22 13:32:00 Manuel [facility] ospital PROTEIN, URINE, RANDOM 2021-12-22 13:32:00 Manuel [facility] URIC ACID LEVEL 2021-12-22 13:32:00 Manuel [facility] spital URINALYSIS, AUTOMATED WITH 2021-12-22 13:32:00 Manuel [facility] MICROSCOPY CREATININE LEVEL, URINE, 2021-12-22 13:32:00 Manuel [facility] RANDOM VITAMIN D 25 HYDROXY LEVEL 2021-12-22 13:32:00 Manuel, [facility] VITAMIN D 1,25 DIHYDROXY 2021-12-22 13:32:00 Manuel, [facility] LEVEL, SERUM CELL COUNT AND 2021-11-20 19:23:00 Jennifer, [facility] DIFFERENTIAL, BODY FLUID CRYSTAL ANALYSIS 2021-11-20 19:23:00 Jennifer, [facility] [place] RAD NEEDLE ASPIRATION 2021-11-20 17:49:00 Jennifer, [facility] AEROBIC CULTURE 2021-11-20 16:09:00 Jennifer, [facility] ANAEROBIC CULTURE 2021-11-20 16:09:00 Jennifer, [facility] FUNGUS CULTURE 2021-11-20 16:09:00 Jennifer, [facility] GRAM STAIN 2021-11-20 16:09:00 Jennifer, [facility] US ABDOMEN COMPLETE 2021-11-11 13:59:59 Sosa Cuenca [facility] CT LOWER EXTREMITY WO 2021-10-10 15:00:32 Jennifer, [facility] CONTRAST RIGHT URINE PROTEIN 2021-10-03 14:09:00 Sosa Cuenca ospital ELECTROPHORESIS, 24 HOUR CBC WITH PLATELET AND 2021-10-01 13:29:00 [facility]HENSIVE METABOLIC 2021-10-01 13:29:[address] [facility] PANEL GGT 2021-10-01 13:29:00 Sosa Cuenca ospital PROTHROMBIN TIME WITH INR 2021-10-01 13:29:00 [facility] G, A, M 2021-10-01 13:29:00 Sosa Cuenca [facility] SERUM ELECTROPHORESIS 2021-10-01 13:29:00 Sosa Cuenca [facility] IONIZED CALCIUM 2021-10-01 13:29:00 Sosa Cuenca ospital XR CHEST 2 VW 2021-09-29 18:13:18 Jennifer, [facility] SEDIMENTATION RATE 2021-09-19 13:34:00 Jennifer, [facility] C-REACTIVE PROTEIN 2021-09-19 13:34:00 Jennifer, [facility] COMPREHENSIVE METABOLIC 2021-09-19 13:32:00 Manuel [facility] PANEL MAGNESIUM LEVEL 2021-09-19 13:32:00 Hal Kaur spital PARATHYROID HORMONE 2021-09-19 13:32:00 [facility] 2021-09-19 13:32:00 Hal Kaur ospital PROTEIN, URINE, RANDOM 2021-09-19 13:32:00 Manuel [facility] URIC ACID LEVEL 2021-09-19 13:32:00 Hal Kaur spital CREATININE LEVEL, URINE, 2021-09-19 13:32:00 Manuel, [facility] RANDOM URINALYSIS, AUTOMATED WITH 2021-09-19 13:32:00 [facility] MICROSCOPY VITAMIN D 25 HYDROXY LEVEL 2021-09-19 13:32:00 [facility] VITAMIN D 1,25 DIHYDROXY 2021-09-19 13:32:00 [facility] LEVEL, SERUM BONE DENSITY 2021-09-01 14:15:00 [facility] B. COMPREHENSIVE METABOLIC 2021-08-04 14:00:00 [facility] PANEL CBC WITH PLATELET AND 2021-08-04 14:00:00 [facility] DIFFERENTIAL CREATININE LEVEL, URINE, 2021-08-04 14:00:00 [facility] RANDOM MAGNESIUM LEVEL 2021-08-04 14:00:00 [facility] spital PARATHYROID HORMONE 2021-08-04 14:00:00 Manule [facility] PHOSPHORUS LEVEL 2021-08-04 14:00:00 Manuel [facility] ospital PROTEIN, URINE, RANDOM 2021-08-04 14:00:00 [facility] URIC ACID LEVEL 2021-08-04 14:00:00 [facility] spital URINALYSIS, AUTOMATED WITH 2021-08-04 14:00:00 [facility] MICROSCOPY VITAMIN D 25 HYDROXY LEVEL 2021-08-04 14:00:00 [facility] TTE COMPLETE, WO CONTRAST, 2021-07-18 17:07:[address] [facility] W DOPPLER ([id number]) ECG 12-LEAD 2021-07-09 17:12:37 Rashad Nava [facility] spital CBC WITH PLATELET AND 2021-07-07 14:26:00 Sosa Cuenca [facility] DIFFERENTIAL COMPREHENSIVE METABOLIC 2021-07-07 14:26:00 [facility] IMMUNOGLOBULIN G, A, M 2021-07-07 14:26:00 Sosa Cuenca [facility] FERRITIN LEVEL 2021-07-07 14:26:00 Sosa Cuenca H ospital TOTAL IRON BINDING 2021-07-07 14:26:00 [facility]SE 2021-07-01 13:55:00 Deisi Caban spiedward De Guzman BASIC METABOLIC PANEL 2021-07-01 10:47:00 [facility] HC COMPLETE BLD COUNT 2021-07-01 10:47:00 [facility] W/AUTO DIFF [id number] TACROLIMUS LEVEL, 2021-07-01 10:47:00 [facility] TROUGH ESTIMATED GFR 2021-07-01 10:47:00 Storm Galvan ospital ECG PRE/POST OP 2021-07-01 07:55:[facility] POC GLUCOSE 2021-07-01 03:43:00 Deisi Caban XR CHEST 1 VW PORTABLE 2021-06-30 23:25:[facility] 2021-06-30 22:59:00 Deisi Caban EP PACEMAKER INSERTION NEW 2021-06-30 22:26:10 [facility] OR REPLACEMENT POC GLUCOSE 2021-06-30 18:01:00 Deisi Caban POC GLUCOSE 2021-06-30 14:01:00 Deisi Caban spiedward De [place] BASIC METABOLIC PANEL 2021-06-30 11:13:00 [facility] HC COMPLETE BLD COUNT 2021-06-30 11:13:00 [facility] W/AUTO DIFF [id number] TACROLIMUS LEVEL, 2021-06-30 11:13:00 [facility] TROUGH ESTIMATED GFR 2021-06-30 11:13:00 Storm Galvan ospital POC GLUCOSE 2021-06-30 04:33:00 Deisi Caban spiedward De [place] CT HEAD WO CONTRAST 2021-06-30 03:02:34 [facility] 2021-06-30 01:19:00 Deisi Caban spital [place] POC GLUCOSE 2021-06-29 23:15:00 Deisi Caban spital [place] POC GLUCOSE 2021-06-29 17:50:00 Deisi Caban Ho spital [place] POC GLUCOSE 2021-06-29 15:43:00 Deisi Caban Ho spital [place] POC GLUCOSE 2021-06-29 14:30:00 Deisi Caban spital [place] BASIC METABOLIC PANEL 2021-06-29 11:02:00 [facility] HC COMPLETE BLD COUNT 2021-06-29 11:02:00 [facility] W/AUTO DIFF [id number] TACROLIMUS LEVEL, 2021-06-29 11:02:00 [facility] TROUGH ESTIMATED GFR 2021-06-29 11:02:00 Storm Galvan H ospital POC GLUCOSE 2021-06-29 03:44:00 Deisi Caban Ho spital [place] POC GLUCOSE 2021-06-28 23:28:00 Deisi Caban Ho spital [place] POC GLUCOSE 2021-06-28 17:54:00 Deisi Caban Ho spital [place] POC GLUCOSE 2021-06-28 14:26:00 Deisi Caban Ho spital [place] BASIC METABOLIC PANEL 2021-06-28 10:30:00 [facility] HC COMPLETE BLD COUNT 2021-06-28 10:30:00 [facility] W/AUTO DIFF [id number] TACROLIMUS LEVEL, 2021-06-28 10:30:00 [facility] TROUGH ESTIMATED GFR 2021-06-28 10:30:00 Storm Galvan H ospital POC GLUCOSE 2021-06-28 04:22:00 Deisi Caban spital [place] POC GLUCOSE 2021-06-27 23:51:00 Deisi Caban spital [place] POC GLUCOSE 2021-06-27 19:03:00 Deisi Caban Ho spital [place] POC GLUCOSE 2021-06-27 14:14:00 Deisi Caban Ho spital [place] BASIC METABOLIC PANEL 2021-06-27 10:43:00 [facility] HC COMPLETE BLD COUNT 2021-06-27 10:43:00 [facility] W/AUTO DIFF [facility] FK506 TACROLIMUS LEVEL, 2021-06-27 10:43:00 [place] [facility] ESTIMATED GFR 2021-06-27 10:43:00 Brie Corrycristian Zavala [facility] SMEAR REVIEW 2021-06-27 10:43:00 Brie Corry Zoroastrian [facility] POC GLUCOSE 2021-06-27 04:19:00 Deisi Caban Ho spital [place] POC GLUCOSE 2021-06-27 00:00:00 Deisi Caban Ho spital [place] POC GLUCOSE 2021-06-26 17:52:00 Deisi Caban Ho spital [place] POC GLUCOSE 2021-06-26 14:03:00 Deisi Caban Ho spital [place] BLOOD CULTURE, AEROBIC & 2021-06-26 11:30:[address] [facility] ANAEROBIC Eve Diaz BASIC METABOLIC PANEL 2021-06-26 10:26:00 [facility] HC COMPLETE BLD COUNT 2021-06-26 10:26:00 [facility] W/AUTO DIFF [facility] [id number] TACROLIMUS LEVEL, 2021-06-26 10:26:00 Brie [facility] VITAMIN D 25 HYDROXY LEVEL 2021-06-26 10:26:[address] [facility] ESTIMATED GFR 2021-06-26 10:26:00 Corry Baird ospiedward Danielsonmble POC GLUCOSE 2021-06-26 05:30:00 Deisi Caban spital Gab BLOOD CULTURE, AEROBIC & 2021-06-26 03:12:[address] [facility] ANAEROBIC Evetrevor Gouldio POC GLUCOSE 2021-06-26 00:09:00 Deisi Caban spiedward De [place]zman POC GLUCOSE 2021-06-25 20:37:00 Oralia Cabanj Sally Rivas spital [place] ANAEROBIC CULTURE 2021-06-25 20:03:[address] [facility] FUNGUS CULTURE 2021-06-25 20:03:00 RentzJez spital AEROBIC CULTURE 2021-06-25 20:03:00 RentzJez spital FUNGUS SMEAR 2021-06-25 20:03:00 RentzJez [employer] STAIN 2021-06-25 20:03:[address] AN ELECTIVE 2021-06-25 19:35:01 Nhi Tapia spital SUPRAGLOTTIC AIRWAY Jacque INCISION AND DRAINAGE, 2021-06-25 19:28:00 [facility] JOINT, UPPER EXTREMITY, WITH ARTHROSCOPY [employer] CULTURE 2021-06-25 19:03:00 Jez Arevalo spital POC GLUCOSE 2021-06-25 18:38:00 Arsh [facility] Zoroastrian Ho spital [place] OSMOLALITY, URINE 2021-06-25 16:36:00 [facility] Gab SODIUM LEVEL, URINE, 2021-06-25 16:36:00 [facility] RANDOM Gab OSMOLALITY, SERUM 2021-06-25 16:20:00 [facility] Gab B NATRIURETIC PEPTIDE 2021-06-25 16:20:00 [facility] Gab COVID-19 QUALITATIVE 2021-06-25 15:06:00 [facility] POC [facility]UCOSE 2021-06-25 13:22:00 [facility] ZZCOVID-19 ANTI-SPIKE IGG 2021-06-25 10:15:00 Sosa Hollins [facility] ANTIBODY TITER Otto BASIC METABOLIC PANEL 2021-06-25 10:15:00 [facility] HC COMPLETE BLD COUNT 2021-06-25 10:15:00 [facility] W/AUTO DIFF [facility] [id number] TACROLIMUS LEVEL, 2021-06-25 10:15:00 [facility] TROUGH [facility] ZZCOVID-19 SEROLOGY 2021-06-25 10:15:00 Gurvinder [facility] PATIENT SURVEILLANCE Otto ESTIMATED GFR 2021-06-25 10:15:00 [facility] Corry Zavala ospital [facility] POC GLUCOSE 2021-06-25 03:28:00 Ashley Olmedo spital POC GLUCOSE 2021-06-25 00:05:00 Ashley Olmedo spital [employer] STAIN 2021-06-24 23:50:00 Ashley Olmedo spital ANAEROBIC CULTURE 2021-06-24 23:50:00 [facility] 2021-06-24 23:50:00 Ashley Olmedo spital FUNGUS SMEAR 2021-06-24 23:50:00 Ashley Olmedo spital CELL COUNT AND 2021-06-24 23:50:00 VallejoCheletal DIFFERENTIAL, BODY FLUID CRYSTAL ANALYSIS 2021-06-24 23:50:00 VallejoChele lindo ospital GRAM STAIN 2021-06-24 23:48:00 Ashley Olmedo spital JOINT FLUID CULTURE 2021-06-24 23:48:[address] [facility] AFB CULTURE 2021-06-24 22:50:00 VallejoChele spital US DUPLEX VENOUS UPPER 2021-06-24 19:57:04 Arsh, [facility] EXTREMITY RIGHT De Guzman POC GLUCOSE 2021-06-24 18:51:00 Ashley Olmedo spital XR HAND 3+ VW RIGHT 2021-06-24 16:42:17 Ashley Olmedo [facility] XR WRIST 3+ VW RIGHT 2021-06-24 16:35:41 Tereso Chris [facility] POC GLUCOSE 2021-06-24 14:23:00 Ashley Olmedo spital [id number] TACROLIMUS LEVEL, 2021-06-24 11:04:00 Brie [facility] BASIC METABOLIC PANEL 2021-06-24 11:04:00 [facility] 2021-06-24 [facility]FF [facility] MAGNESIUM LEVEL 2021-06-24 11:04:00 Sally Hsu ramila Loyda ESTIMATED GFR 2021-06-24 11:04:00 [facility] [place] SEDIMENTATION RATE 2021-06-24 06:28:00 Tereso [facility][1] C-REACTIVE PROTEIN 2021-06-24 06:28:00 Tereso Chris [facility][1] URIC ACID LEVEL 2021-06-24 06:28:00 Sally Hsu Loyda POC GLUCOSE 2021-06-24 03:46:00 Ashley Olmedo spital ECG 12-LEAD 2021-06-24 03:01:37 [facility] [place] POC GLUCOSE 2021-06-24 00:06:00 Ashley Olmedo spital HEMOGLOBIN A1C 2021-06-23 22:23:00 Corry Baird ospital [place] POC GLUCOSE 2021-06-23 18:19:00 Ashley Olmedo spital SURGICAL PATHOLOGY REQUEST 2021-06-23 18:15:00 Ashley Olmedo [facility] CV LEFT HEART CATH LV GRAM 2021-06-23 17:44:27 [facility] WITH CORS ECG PRE/POST OP 2021-06-23 15:19:35 Ashley Olmedo spital POC GLUCOSE 2021-06-23 14:07:00 Ashley Olmedo Ho spital BASIC METABOLIC PANEL 2021-06-19 14:50:00 [facility] HC COMPLETE BLD COUNT 2021-06-19 14:50:00 [facility] W/AUTO DIFF MAGNESIUM LEVEL 2021-06-19 14:50:00 [facility] spital HEPATIC FUNCTION PANEL 2021-06-19 14:50:00 [facility] B NATRIURETIC PEPTIDE 2021-06-19 14:50:00 [facility] [id number] TACROLIMUS LEVEL, 2021-06-19 14:50:00 [facility] RANDOM PROTHROMBIN TIME WITH INR 2021-06-19 14:50:00 [facility] ESTIMATED GFR 2021-06-19 14:50:00 [facility] spital DONOR SPECIFIC ANTIBODY 2021-06-19 14:50:00 [facility] COVID-19 QUALITATIVE 2021-06-19 14:07:00 [facility] RT-PCR [U] XRAY HIP UNILATERAL 2019-09-29 00:00:00 [facility] WITH PELVIS WHEN PERFORMED 1 VW RIGHT [id number] NM Bone scan 3 phase [id number] 2019-09-19 00:00:00 [facility] [QL] CBC (INCLUDES 2019-09-13 00:00:00 [facility] DIFF/PLT) [B] C-REACTIVE PROTEIN 2019-09-13 00:00:00 [facility] [QL] D-DIMER, QUANTITATIVE 2019-09-13 00:00:00 [facility] [B] SEDIMENTATION RATE 2019-09-13 00:00:00 [facility] NM Bone scan 3 phase [id number] 2019-09-13 00:00:00 [facility] [QL] SED RATE BY MODIFIED 2019-09-13 00:00:00 [facility] WESTERGREN History [facility] Replacement [facility] Plan of Care Planned Activity Planned Date Details Comments Source Future Scheduled 2022-05-14 SHINGLES VACCINES (1 [facility] Test 13:13:00 of 2) [code = SHINGLES Hospi edward VACCINES (1 of 2)] Future Scheduled 2022-05-14 HEPATITIS B VACCINES [facility] Test 13:13:00 (1 of 3 - Risk 3-dose Hospit al series) [code = HEPATITIS B VACCINES (1 of 3 - Risk 3-dose series)] Future Scheduled 2022-05-14 65+ PNEUMOCOCCAL Methodi st Test 13:13:00 VACCINE (3 - PPSV23 if Hospi edward available, else PCV20) [code = 65+ PNEUMOCOCCAL VACCINE (3 - PPSV23 if available, else PCV20)] Future Scheduled 2022-05-14 DIABETIC FOOT EXAM [facility] Test 13:13:00 [code = DIABETIC FOOT Hospit al EXAM] Future Scheduled 2022-05-14 COLONOSCOPY SCREENING [facility] Test 13:13:00 [code = COLONOSCOPY Hospital SCREENING] Future Scheduled 2022-05-14 DIABETES: RETINAL EYE [facility] Test 13:13:00 EXAM [code = DIABETES: Hospi edward RETINAL EYE EXAM] Future Scheduled 2022-02-18 CT TANGENTIAL BIOPSY Ordered: [facility] Test 16:50:49 SKIN SINGLE LESION 02/18/2022 of Medici ne [code = 61943] Future Scheduled 2022-02-18 CT TANGENTIAL BIOPSY Ordered: [facility] Test 16:50:49 SKIN EA SEP/ADDITIONAL 02/18/2022 of Me dicine LESION [code = 54096] Future Scheduled 2022-02-18 DERMATOPATHOLOGY Release Upon [facility] Test 12:06:53 REPORT [code = NOCPT] Ordering for 1 of M edicine Occurrences starting 02/18/2022 Future Scheduled 2022-02-18 Screening for [facility] Test 11:32:37 malignant neoplasm of of Med icine colon (procedure) [code = 313074749] Future Scheduled 2022-02-18 TETANUS SHOT (ADULT) [facility] Test 11:32:37 [code = TETANUS SHOT of Medi cine (ADULT)] Future Scheduled 2022-02-18 Diabetic [address] [facility] Col [facility]ge Test 11:32:37 examination of Medicine (regime/therapy) [code = 832358139] Future Scheduled 2022-02-18 ANNUAL DIABETIC [facility] C [facility]lege Test 11:32:37 RETINOPATHY SCREENING of Med icine [code = ANNUAL DIABETIC RETINOPATHY SCREENING] Future Scheduled 2022-02-18 ZOSTER VACCINE (1 of [facility] Test 11:32:37 2) [code = ZOSTER of Medicin e VACCINE (1 of 2)] Future Scheduled 2022-02-18 Pneumococcal 65+ (2 - [employer] Test 11:32:37 PCV) [code = of Medicine Pneumococcal 65+ (2 - PCV)] Future Scheduled 2022-02-18 [facility] 11:32:37 [code = MEDICARE AWV of Medi cine (Initial)] Future Scheduled 2022-02-18 Abdominal aortic [facility] Test 11:32:37 aneurysm screening of Medici ne (procedure) [code = 353555727] Future Scheduled 2022-02-18 FALL SCREEN [code = [facility] Test 11:32:37 FALL SCREEN] of Medicine Future Scheduled 2022-02-18 FLU VACCINE > 6 MONTHS [employer] Test 11:32:37 [code = FLU VACCINE > of Med icine 6 MONTHS] Future Scheduled 2022-01-22 INFLUENZA VACCINE (#1[facility] Test 00:00:00 [code = INFLUENZA Medical Ce nter VACCINE (#1)] Future Scheduled 2021-05-[address] [facility] Test 00:00:00 (12+) [code = Medical Center DEPRESSION SCREENING (12+)] Future Scheduled 2021-05-24 FALLS RISK SCREENING [facility] Test 00:00:00 [code = FALLS RISK Medical C enter SCREENING] Future Scheduled 2021-03-05 CT TANGENTIAL BIOPSY Ordered: [facility] Test 12:24:12 SKIN SINGLE LESION 03/05/2021 of Medici ne [code = 31241] Future Scheduled 2021-03-05 CT TANGENTIAL BIOPSY Ordered: [facility] Test 12:24:12 SKIN EA SEP/ADDITIONAL 03/05/2021 of Me dicine LESION [code = 18177] Future Scheduled 2021-03-[address] [facility] Col [facility]ge Test 09:27:37 malignant neoplasm of of Med icine colon (procedure) [code = 770589303] Future Scheduled 2021-03-05 TETANUS SHOT (ADULT) [facility] Test 09:27:37 [code = TETANUS SHOT of Medi cine (ADULT)] Future Scheduled 2021-03-05 Diabetic foot [facility]ge Test 09:27:37 examination of Medicine (regime/therapy) [code = 009200717] Future Scheduled 2021-03-05 ANNUAL DIABETIC [facility] C [facility]lege Test 09:27:37 RETINOPATHY SCREENING of Med icine [code = ANNUAL DIABETIC RETINOPATHY SCREENING] Future Scheduled 2021-03-05 BMI FOLLOW UP PLAN [facility] Test 09:27:37 [code = BMI FOLLOW UP of Med icine PLAN] Future Scheduled 2021-03-05 ZOSTER VACCINE (1 of [facility] Test 09:27:37 2) [code = ZOSTER of Medicin e VACCINE (1 of 2)] Future Scheduled 2021-03-05 MEDICARE AWV (Initial) [facility] Test 09:27:37 [code = MEDICARE AWV of Medi cine (Initial)] Future Scheduled 2021-03-05 Abdominal aortic [facility] Test 09:27:37 aneurysm screening of Medici ne (procedure) [code = 515651751] Future Scheduled 2021-03-05 FALL SCREEN [code = [facility] Test 09:27:37 FALL SCREEN] of Medicine Future Scheduled 2021-03-05 FLU VACCINE > 6 MONTHS [facility] Test 09:27:37 [code = FLU VACCINE > of Med icine 6 MONTHS] Future Scheduled 2020-09-27 CT TANGENTIAL BIOPSY Ordered: [facility] Test 14:54:43 SKIN SINGLE LESION 09/27/2020 of Medici ne [code = 72994] Future Scheduled 2020-09-27 CT TANGENTIAL BIOPSY Ordered: [facility] Test 14:54:43 SKIN EA SEP/ADDITIONAL 09/27/2020 of Me dicine LESION [code = 32819] Future Scheduled 2020-09-27 CT DESTRUC Ordered: [facility] Cem ege Test 14:54:13 PREMALIGNANT,15+ 09/27/2020 of Medicine LESIONS(78631) [code = 87969] Future Scheduled 2020-09-[address] [facility] Col [facility]ge Test 09:34:50 malignant neoplasm of of Med icine colon (procedure) [code = 200374579] Future Scheduled 2020-09-27 TETANUS SHOT (ADULT) [facility] Test 09:34:50 [code = TETANUS SHOT of Medi cine (ADULT)] Future Scheduled 2020-09-27 Diabetic foot [facility]ge Test 09:34:50 examination of Medicine (regime/therapy) [code = 994765009] Future Scheduled 2020-09-27 ANNUAL DIABETIC [facility] C ollege Test 09:34:50 RETINOPATHY SCREENING of Med icine [code = ANNUAL DIABETIC RETINOPATHY SCREENING] Future Scheduled 2020-09-27 BMI FOLLOW UP PLAN [facility] [place] Test 09:34:50 [code = BMI FOLLOW UP of Med icine PLAN] Future Scheduled 2020-09-27 ZOSTER VACCINE (1 of [facility] Test 09:34:50 2) [code = ZOSTER of Medicin e VACCINE (1 of 2)] Future Scheduled 2020-09-27 MEDICARE AWV (Initial) [facility] Test 09:34:50 [code = MEDICARE AWV of [email or web address] [email or web address] (Initial)] Future Scheduled 2020-09-27 Abdominal aortic [facility] Test 09:34:50 aneurysm screening of Medici ne (procedure) [code = 275459353] Future Scheduled 2020-09-27 FALL SCREEN [code = [facility] [place] Test 09:34:50 FALL SCREEN] of Medicine Future Scheduled 2020-09-27 PNEUMOVAX >=[address] [facility]lege Test 09:34:50 (PPSV23) [code = of Medicine PNEUMOVAX >=65 (PPSV23)] Future Scheduled 2020-09-27 FLU VACCINE > 6 MONTHS [facility] Test 09:34:50 [code = FLU VACCINE > of Med icine 6 MONTHS] Diagnostic Test 2019-09-19 NM Bone scan 3 phase [facility] Pending 00:00:00 [id number] [code = 78612] Future Scheduled 2016-07-28 PNEUMOCOCCAL 65+ YRS [facility] Test 00:00:00 (2 - PPSV23 or PCV20) Medica l Center [code = PNEUMOCOCCAL 65+ YRS (2 - PPSV23 or PCV20)] Future Scheduled 1999-10-15 SHINGLES VACCINES ([address] [facility] Test 00:00:00 of 2) [code = SHINGLES Medic al Center VACCINES (1 of 2)] Future Scheduled 1968 DTAP/TDAP/TD VACCINES [facility] Test 00:00:00 (1 - Tdap) [code = Medical C enter DTAP/TDAP/TD VACCINES (1 - Tdap)] Future Scheduled [address] [facility] Test 00:00:00 Counseling and Medical Cente r Screening (12+) [code = Tobacco Cessation Counseling and Screening (12+)] Future Scheduled [address] [facility] Test 00:00:00 (combo) [code = CT Medical C enter Colonography (combo)] Future Scheduled [address] Test 00:[facility]:00 malignant neoplasm of Medica l Center colon (procedure) [code = 646986706] Future Scheduled [address] [facility] Test 00:00:00 malignant neoplasm of Medica l Center colon (procedure) [code = 174036884] Future Scheduled [address] [facility] Test 00:00:00 malignant neoplasm of Medica l Center colon (procedure) [code = 231911465] Future Scheduled [address] [facility] Test 00:00:00 malignant neoplasm of Medica l Center colon (procedure) [code = 541340144] Future Scheduled 1949 Sigmoidoscopy [facility]code [facility] Test [facility] S[facility]oscopy] Medical Cente r Future Scheduled CT DESTRUC Ordered: [facility]em [facility]ge Test PREMALIGNANT, FIRST 08/01/2019 of Medic ine LESION(33325) [code = 77070] Future Scheduled CT DESTRUC Ordered: [facility] Test PREMALIGNANT,2-14 08/01/2019 of Medicin e LESIONS(51673) [code = 77864] Future Scheduled COLON CANCER [facility] Cem [facility]ge Test SCREENING: COLONOSCOPY of Me dicine [code = COLON CANCER SCREENING: COLONOSCOPY] Future Scheduled TETANUS SHOT (ADULT) [facility] Test [code = TETANUS SHOT of Medi cine (ADULT)] Future Scheduled Diabetic foot [facility] Col lege Test examination of Medicine (regime/therapy) [code = 015817063] Future Scheduled ANNUAL DIABETIC [facility] C ollege Test RETINOPATHY SCREENING of Med icine [code = ANNUAL DIABETIC RETINOPATHY SCREENING] Future Scheduled BMI FOLLOW UP PLAN [employer] Test [code = BMI FOLLOW UP of Med icine PLAN] Future Scheduled MEDICARE AWV (Initial) [employer] Test [code = MEDICARE AWV of Medi cine (Initial)] Future Scheduled FALL SCREEN [code = [employer] FALL SCREEN] of Medicine Future Scheduled PNEUMOVAX >=[address] [facility] Test (PPSV23) [code = of Medicine PNEUMOVAX >=65 (PPSV23)] Future Scheduled PREVNAR >= 65 (PCV13) [employer] Test [code = PREVNAR >= 65 of Med icine (PCV13)] Future Scheduled FLU VACCINE > 6 MONTHS [employer] Test [code = FLU VACCINE > of Med icine 6 MONTHS] Future Scheduled CT DESTRUC Ordered: [facility] Cem ege Test PREMALIGNANT,15+ 09/27/2020 of Medicine LESIONS(33773) [code = 80795] Future Scheduled CT TANGENTIAL BIOPSY Ordered: [facility] Test SKIN SINGLE LESION 09/27/2020 of Medici ne [code = 62610] Future Scheduled CT TANGENTIAL BIOPSY Ordered: [facility] Test SKIN EA SEP/ADDITIONAL 09/27/2020 of Me dicine LESION [code = 27676] Future Scheduled Screening for [facility] Col lege Test malignant neoplasm of of Med icine colon (procedure) [code = 596917153] Future Scheduled TETANUS SHOT (ADULT) [employer] Test [code = TETANUS SHOT of Medi cine (ADULT)] Future Scheduled Diabetic foot [facility] Col lege Test examination of Medicine (regime/therapy) [code = 814347462] Future Scheduled ANNUAL DIABETIC [facility] C [facility]lege Test RETINOPATHY SCREENING of Med icine [code = ANNUAL DIABETIC RETINOPATHY SCREENING] Future Scheduled BMI FOLLOW UP PLAN [employer] Test [code = BMI FOLLOW UP of Med icine PLAN] Future Scheduled ZOSTER VACCINE (1 of [employer] Test 2) [code = ZOSTER of Medicin e VACCINE (1 of 2)] Future Scheduled MEDICARE AWV (Initial) [employer] Test [code = MEDICARE AWV of Medi cine (Initial)] Future Scheduled Abdominal aortic [facility] Test aneurysm screening of Medici ne (procedure) [code = 570527412] Future Scheduled FALL SCREEN [code = [employer] FALL SCREEN] of Medicine Future Scheduled PNEUMOVAX >=[address] [facility] Test (PPSV23) [code = of Medicine PNEUMOVAX >=65 (PPSV23)] Future Scheduled FLU VACCINE > 6 MONTHS [facility] Test [code = FLU VACCINE > of Med icine 6 MONTHS] Encounters Start End Encounter Admission Attending Care Care Encounter Source Date/Time Date/Time Type Type Clinicians Facility Department ID 2022-04-24 2022-04-24 Outpatient ITALO MENDEZ [facility] [id number] [facility] 10:01:21 15:53:23 STEVIEDIEUDONNE Donaldson e of Medicin e 2022-04-23 2022-04-23 Telemedici Bang, 1.2.840.1 [id number] Methodi 09:30:00 09:45:18 hina Wheeler [address]39.1.[address] 3.430.2.7 Hospit a .3.253985 l .8 2022-04-23 2022-04-23 Documentat Diane, 1.2.840.1 [id number] Methodi 00:00:00 00:00:[id number] 3.430.2.7 Hospit a .3.585157 l .8 2022-04-23 2022-04-23 Outpatient BANG, [facility] [id number] [place] 00:00:00 00:00:00 [facility] [address] 2022-04-13 2022-04-13 Documentat Diane, 1.2.840.1 [id number] Methodi 00:00:00 00:00:00 [address] 3.430.2.7 Hospit a .3.131731 l .8 2022-04-10 2022-04-10 Orders Flaherty, 1.2.840.1 [id number] Methodi 00:00:00 00:00:00 Only Cassidy [address]96.1.[address] 3.430.2.7 Hospit a .3.346635 l .8 2022-04-10 2022-04-10 Orders Flaherty, 1.2.840.1 [id number] 2100 893390 Methodi 00:00:00 00:00:00 Only Cassidy 07793.1.[address] 3.430.2.7 Hospit a .3.272989 l .8 2022-04-10 2022-04-10 Orders Hurst, 1.2.840.1 [id number] 899654 4406 Methodi 00:00:00 00:00:00 Only Nenita 63852.1.[address] 3.430.2.7 Hospit a .3.519360 l .8 2022-04-08 2022-04-08 [facility], 1.2.840.1 [id number] 73747 13097 Methodi 17:30:00 23:59:00 Encounter Nadim 68911.1.[address] 3.430.2.7 Hospit a .3.568741 l .8 2022-04-08 2022-04-08 [facility], 1.2.840.1 [id number] 30241 67311 Methodi 16:45:00 17:29:00 Encounter Nadnehemiah 45473.1.[address] 3.430.2.7 Hospit a .3.420972 l .8 2022-04-08 2022-04-08 [facility] Ana LauraBlakeny 1.2.840.1 [id number] 21 [id number] Methodi 14:56:52 16:44:00 Encounter Thomas 91334.1.[address] 3.430.2.7 Hospit a .3.867118 l .8 2022-04-08 2022-04-08 [facility] Mayco Ruby 1.2.840.1 [id number] Methodi 14:46:41 14:55:00 Encounter Thomas [address]197.1.[address] 3.430.2.7 Hospit a .3.897902 l .8 2022-04-08 2022-04-08 Travel 1.2.840.1 1.2.426.023 0183 619621 Methodi 00:00:00 00:00:[address] 3.430.2.7 0.2.7.3.698 Ho spita .3.054458 084.8 l .8 2022-04-08 2022-04-08 Outpatient MAYCO RUBY [facility] 2100 [id number] [place] 00:00:00 00:00:[address] 2022-04-08 2022-04-08 Outpatient MAYCO RUBY [facility] 2100 [id number] [place] 00:00:00 00:00:[address] 2022-04-08 2022-04-08 Outpatient REYNOLD, [facility] [id number] 946 [place] 00:00:00 00:00:00 NADIM [address] 2022-04-08 2022-04-08 Outpatient REYNOLD, [facility] [id number] 946 [place] 00:00:00 00:00:00 NADIM [address] 2022-04-07 2022-04-07 Rudy Santiago, 1.2.840.1 [id number] 6366 Methodi 00:00:00 00:00:[address] 3.430.2.7 Hospit a .3.080783 l .8 2022-04-03 2022-04-03 Orders Hurst, 1.2.840.1 [id number] 827939 6114 Methodi 00:00:00 00:00:00 Only Edelyn 41386.1.[address] 3.430.2.7 Hospit a .3.042311 l .8 2022-04-02 2022-04-02 Orders Hurst, 1.2.840.1 [id number] 536988 8379 Methodi 00:00:00 00:00:00 Only Edelyn 63292.1.[address] 3.430.2.7 Hospit a .3.428943 l .8 2022-03-31 2022-03-31 Office Mayco Ruby 1.2.840.1 [id number] 201 8290722 Methodi 10:30:00 14:57:41 Visit Thomas 71162.1.[address] 3.430.2.7 Hospit a .3.752056 l .8 2022-03-31 2022-03-31 Procedure 1.2.840.1 [id number] 2100 647116 Methodi 08:00:00 10:15:[address] 3.430.2.7 Hospit a .3.864363 l .8 2022-03-31 2022-03-31 Travel 1.2.840.1 1.2.351.863 7162 087587 Methodi 00:00:00 00:00:[address] 3.430.2.7 0.2.7.3.698 Ho spita .3.188785 084.8 l .8 2022-03-31 2022-03-31 Outpatient [facility] [id number] 516 [place] 00:00:00 00:00:[address] 2022-03-31 2022-03-31 Outpatient MAYCO RUBY [facility] 2100 [id number] [place] 00:00:00 00:00:[address] 2022-03-19 2022-03-19 Office Mayco Ruby 1.2.840.1 [id number] 274 3723576 Methodi 13:30:00 14:02:46 Visit Thomas 24247.1.[address] 3.430.2.7 Hospit a .3.161497 l .8 2022-03-19 2022-03-19 Office Kalpesh 1.2.840.1 [id number] 682272 3359 Methodi 13:00:00 13:59:49 Visit Radha 43049.1.[address] Maryellen 3.430.2.7 Hospit a .3.400573 l .8 2022-03-19 2022-03-19 Travel 1.2.840.1 1.2.073.837 5667 359062 Methodi 00:00:00 00:00:[address] 3.430.2.7 0.2.7.3.698 Ho spita .3.458502 084.8 l .8 2022-03-19 2022-03-19 Outpatient [facility] [id number] 460 [place] 00:00:00 00:00:[address] 2022-03-19 2022-03-19 Outpatient MAYCO RUBY [facility] 2100 [id number] [place] 00:00:00 00:00:[address] 2022-03-04 2022-03-04 Refill [facility] 1.2.840.1 [id number] 221465 8029 Methodi 00:00:00 00:00:[address] Wilfrido B. 3.430.2.7 Hospi ta .3.340684 l .8 2022-02-25 2022-02-25 Telemedici Saint 1.2.840.1 [id number] 424 1495871 Methodi 15:20:00 15:26:56 ne Yung 89343.1.[address] Wilfrido B. 3.430.2.7 Hospi ta .3.795903 l .8 2022-02-24 2022-02-25 Office Hal Kaur 1.2.840.5 [id number] 2 [id number] Methodi 13:45:00 11:02:[address] 3.430.2.7 Hospit a .3.862880 l .8 2022-02-25 2022-02-25 Outpatient [facility] [id number] 122 [place] 00:00:00 00:00:00 Nancy BARRAGAN Method i [address] [facility] 2022-02-24 2022-02-25 Outpatient HAL KAUR [facility] 991 [id number] [place] 00:00:00 00:00:[address] 2022-02-24 2022-02-24 Travel 1.2.840.1 1.2.796.162 3076 714751 Methodi 00:00:00 00:00:[address] 3.430.2.7 0.2.7.3.698 Ho spita .3.669381 084.8 l .8 2022-02-18 2022-02-18 Office ELVA OLMEDO ITALO 1.2.840.[address] [facility] 10:53:20 13:34:58 Visit AMBULATOR 350.1.13.21 College Y 0.2.7.2.686 of 179.4389010 Medi prem 300 e 2022-02-05 2022-02-05 Abstract Harris [facility] [id number] [address] [facility] [address] 00:00:00 00:00:00 [facility] 2021-12-25 2021-12-25 Clinical Hal Kaur 1.2.840.0 [id number] Methodi 11:15:00 15:14:[address] 3.430.2.7 Hospit a .3.018521 l .8 2021-12-25 2021-12-25 Office Julio 1.2.840.1 [id number] 12641 40382 Methodi 08:30:00 13:23:36 Visit Sera Prater 34732.1.[address] 3.430.2.7 Hospit a .3.018329 l .8 2021-12-25 2021-12-25 Travel 1.2.840.1 1.2.021.768 2436 021066 Methodi 00:00:00 00:00:[address] 3.430.2.7 0.2.7.3.698 Ho spita .3.221088 084.8 l .8 2021-12-25 2021-12-25 Outpatient JULIO [facility] 021976 2216 [place] 00:00:00 00:00:00 SERA [address] 2021-12-25 2021-12-25 Outpatient JULIO [facility] [id number] 3022 [place] 00:00:00 00:00:00 SERA [address] 2021-12-25 2021-12-25 Outpatient HAL KAUR [facility] 819 [id number] [place] 00:00:00 00:00:[address] 2021-12-17 2021-12-17 Travel 1.2.840.1 1.2.660.608 7282 414203 Methodi 00:00:00 00:00:[address] 3.430.2.7 0.2.7.3.698 Ho spita .3.606069 084.8 l .8 2021-12-17 2021-12-17 Orders Saint 1.2.840.1 [id number] 323396 9072 Methodi 00:00:00 00:00:00 Only Yung, 83737.1.[address] Wilfrido B. 3.430.2.7 Hospi ta .3.165728 l .8 2021-12-01 2021-12-01 Documentat [facility], 1.2.840.1 [id number] 329 0621652 Methodi 00:00:00 00:00:00 ion Sosa 46217.1.[address] 3.430.2.7 Hospit a .3.448069 l .8 2021-11-20 2021-11-20 [facility], 1.2.840.1 [id number] 84377 17171 Methodi 11:00:00 23:59:00 Encounter Marlene 78895.1.[address] Lance 3.430.2.7 Hospit a .3.502186 l .8 2021-11-20 2021-11-20 Travel 1.2.840.1 1.2.256.172 7865 215038 Methodi 00:00:00 00:00:[address] 3.430.2.7 0.2.7.3.698 Ho spita .3.008626 084.8 l .8 2021-11-20 2021-11-20 Outpatient [facility], [facility] [id number] 058 [place] 00:00:00 00:00:00 MARLENE [address] 2021-11-14 2021-11-14 Telephone Hal Kaur 1.2.840.8 [id number] Methodi 00:00:00 00:00:[address] 3.430.2.7 Hospit a .3.422165 l .8 2021-11-12 2021-11-12 Refill Saint 1.2.840.1 [id number] 341178 4556 Methodi 00:00:00 00:00:[address] Wilfrido B. 3.430.2.7 Hospi ta .3.236997 l .8 2021-11-11 2021-11-11 Outpatient BANG, [facility] [id number] 624 [place] 00:00:00 00:00:00 SOSA [address] 2021-11-03 2021-11-03 Travel 1.2.840.1 1.2.359.780 5990 353155 Methodi 00:00:00 00:00:[address] 3.430.2.7 0.2.7.3.698 Ho spita .3.328050 084.8 l .8 2021-10-31 2021-10-31 Orders Ty, 1.2.840.1 [id number] 00045 09626 Methodi 00:00:00 00:00:00 Only Becky 54257.1.[address] 3.430.2.7 Hospit a .3.481408 l .8 2021-10-24 2021-10-24 Outpatient JENNIFER, [facility] [id number] 546 [place] 00:00:00 00:00:00 MARLENE [address] 2021 2021 Orders Rosen, 1.2.840.1 [id number] 756064 9114 Methodi 00:00:00 00:00:00 Only Elisa Thakkar 74034.1.1 527 s t 3.430.2.7 Hospit a .3.295218 l .8 2021-10-10 2021-10-10 Outpatient JENNIFER, [facility] [id number] 952 [place] 00:00:00 00:00:00 MARLENE [address] 2021-10-09 2021-10-09 Telemedici Bang, 1.2.840.1 [id number] 083 [id number] Methodi 09:30:00 09:34:17 hina Wheeler 77635.1.[address] 3.430.2.7 Hospit a .3.335814 l .8 2021-10-09 2021-10-09 Outpatient BANG, [facility] [id number] 366 [place] 00:00:00 00:00:00 SOSA [address] 2021-10-02 2021-10-02 Orders Rosen, 1.2.840.1 [id number] 068325 6237 Methodi 00:00:00 00:00:00 Only Elisa Thakkar 87327.1.1 401 s t 3.430.2.7 Hospit a .3.351847 l .8 2021-10-01 2021-10-01 Travel 1.2.840.1 1.2.377.567 1663 878676 Methodi 00:00:00 00:00:[address] 3.430.2.7 0.2.7.3.698 Ho spita .3.715477 084.8 l .8 2021-10-01 2021-10-01 Orders Grover, 1.2.840.1 [id number] 445367 5155 Methodi 00:00:00 00:00:00 Only Luzma 27033.1.[address] 3.430.2.7 Hospit a .3.513984 l .8 2021-09-29 2021-09-29 Hospital Jennifer, 1.2.840.1 [id number] 30978 65176 Methodi 13:18:48 23:59:00 Encounter Marlene 49601.1.[address] Lance 3.430.2.7 Hospit a .3.371261 l .8 2021-09-29 2021-09-[address] [facility], 1.2.840.1 [id number] 16116 55474 Methodi 12:52:16 13:17:00 Encounter Marlene 24580.1.[address] Lance 3.430.2.7 Hospit a .3.994955 l .8 2021-09-29 2021-09-29 Travel 1.2.840.1 1.2.696.095 6688 887962 Methodi 00:00:00 00:00:[address] 3.430.2.7 0.2.7.3.698 Ho spita .3.641323 084.8 l .8 2021-09-29 2021-09-29 Outpatient JENNIFER, [facility] [id number] 873 [place] 00:00:00 00:00:00 MARLENE [address] 2021-09-29 2021-09-29 Outpatient JENNIFER, [facility] [id number] 872 [place] 00:00:00 00:00:00 MARLENE [address] 2021-09-24 2021-09-24 Clinical Manuel Hal 1.2.840.7 [id number] Methodi 11:15:00 13:39:[address] 3.430.2.7 Hospit a .3.034045 l .8 2021-09-24 2021-09-24 Travel 1.2.840.1 1.2.284.677 6030 017610 Methodi 00:00:00 00:00:[address] 3.430.2.7 0.2.7.3.698 Ho spita .3.903578 084.8 l .8 2021-09-24 2021-09-24 Outpatient HAL KAUR [facility] 492 [id number] [place] 00:00:00 00:00:[address] 2021-09-22 2021-09-22 [facility] 1.2.840.1 [id number] 531670 5984 Methodi 00:00:00 00:00:00 Only Yung, 14210.1.[address] Wilfrido B. 3.430.2.7 Hospi ta .3.985433 l .8 2021-09-17 2021-09-17 Telephone Arlene, 1.2.840.1 [id number] 2 [id number] Methodi 00:00:00 00:00:[address] 3.430.2.7 Hospit a .3.761879 l .8 2021-09-12 2021-09-12 Office Jennifer, 1.2.840.1 [id number] 158324 7459 Methodi 10:00:00 12:25:27 Visit Marlene 09191.1.[address] Lance 3.430.2.7 Hospit a .3.259297 l .8 2021-09-12 2021-09-12 Travel 1.2.840.1 1.2.910.701 1587 954397 Methodi 00:00:00 00:00:[address] 3.430.2.7 0.2.7.3.698 Ho spita .3.521267 084.8 l .8 2021-09-12 2021-09-12 Outpatient [facility] [id number] 848 [place] 00:00:00 00:00:[address] 2021-09-12 2021-09-12 Outpatient JENNIFER, [facility] [id number] 665 [place] 00:00:00 00:00:00 MARLENE [address] 2021-09-01 2021-09-01 Outpatient [facility] [id number] 278 [place] 00:00:00 00:00:00 YUNG, [address] 2021-08-20 2021-08-20 Office Saint 1.2.840.1 [id number] 277505 4290 Methodi 13:00:00 15:03:07 Visit Yung 83078.1.[address] Wilfrido B. 3.430.2.7 Hospi ta .3.337922 l .8 2021-08-20 2021-08-20 Travel 1.2.840.1 1.2.088.391 6945 723002 Methodi 00:00:00 00:00:[address] 3.430.2.7 0.2.7.3.698 Ho spita .3.135881 084.8 l .8 2021-08-20 2021-08-20 Outpatient [facility] [id number] 327 [place] 00:00:00 00:00:00 YUNG, [address] 2021-08-18 2021-08-18 Orders Saint 1.2.840.1 [id number] 277037 6289 Methodi 00:00:00 00:00:00 Only Yung, 59178.1.[address] Wilfrido B. 3.430.2.7 Hospi ta .3.431381 l .8 2021-08-11 2021-08-12 Clinical Hal Kaur 1.2.840.0 [id number] Methodi 14:00:00 16:36:[address] 3.430.2.7 Hospit a .3.348189 l .8 2021-08-11 2021-08-12 Outpatient HAL KAUR [facility] 104 [id number] [place] 00:00:00 00:00:[address] 2021-08-11 2021-08-11 Travel 1.2.840.1 1.2.111.192 6540 318309 Methodi 00:00:00 00:00:[address] 3.430.2.7 0.2.7.3.698 Ho spita .3.127995 084.8 l .8 2021-07-22 2021-07-22 [facility] 1.2.840.1 [id number] 443909 3167 Methodi 00:00:00 00:00:00 Only Yung, 31643.1.[address] Wilfrido B. 3.430.2.7 Hospi ta .3.477958 l .8 2021-07-18 2021-07-18 [facility], 1.2.840.1 [id number] 25508 05817 Methodi 09:45:49 23:59:00 [facility] 64752.1.[address] 3.430.2.7 Hospit a .3.801661 l .8 2021-07-18 2021-07-18 Travel 1.2.840.1 1.2.848.427 9469 654394 Methodi 00:00:00 00:00:[address] 3.430.2.7 0.2.7.3.698 Ho spita .3.640415 084.8 l .8 2021-07-18 2021-07-18 Outpatient [facility] [id number] 271 [place] 00:00:00 00:00:00 ASHRITH [address] 2021-07-16 2021-07-16 Orders Saint 1.2.840.1 [id number] 370941 6830 Methodi 00:00:00 00:00:00 Only Yung, 70667.1.[address] Wilfrido B. 3.430.2.7 Hospi ta .3.495826 l .8 2021-07-15 2021-07-15 Orders Saint 1.2.840.1 [id number] 720374 2654 Methodi 00:00:00 00:00:00 Only Yung, 58653.1.[address] Wilfrido B. 3.430.2.7 Hospi ta .3.891415 l .8 2021-07-10 2021-07-10 Telemedici Bang 1.2.840.1 [id number] 068 5993678 Methodi 08:50:00 08:58:52 hina Wheeler 85615.1.[address] 3.430.2.7 Hospit a .3.997006 l .8 2021-07-10 2021-07-10 [facility] [id number] 032 [place] 00:00:00 00:00:[address] SOSA [address] 2021-07-09 2021-07-09 Office Preston, 1.2.840.1 [id number] 2099 810290 Methodi 10:20:00 10:40:00 Visit Ravinder 58972.1.[address] 3.430.2.7 Hospit a .3.702816 l .8 2021-07-09 2021-07-09 Travel 1.2.840.1 1.2.273.821 2127 017228 Methodi 00:00:00 00:00:[address] 3.430.2.7 0.2.7.3.698 Ho spita .3.783566 084.8 l .8 2021-07-09 2021-07-09 [facility] 54209 55953 [place] 00:00:00 00:00:00 RAVINDER [address] 2021-07-08 2021-07-08 Telephone Ashley Olmedo 1.2.840.1 [id number] 2099 588060 Methodi 00:00:00 00:00:[address] 3.430.2.7 Hospit a .3.764980 l .8 2021-07-02 2021-07-02 Refill Preston, 1.2.840.1 [id number] 2100 746236 Methodi 00:00:00 00:00:[address] 3.430.2.7 Hospit a .3.996045 l .8 2021-06-23 2021-07-01 [facility] Ashley Olmedo Malorie 1.2.840.1 [id number] Methodi 07:42:00 13:46:00 Encounter Deisi Caban 20099.1.[address] 3.430.2.7 Hospit a .3.678166 l .8 2021-06-23 2021-07-01 [facility] 763784 8049 [place] 00:00:00 00:00:00 DEISI [address] 2021-06-30 2021-06-30 Surgery Reynold, 1.2.840.1 [id number] 594275 2676 Methodi 14:00:00 15:50:[address] 3.430.2.7 Hospit a .3.673622 l .8 2021-06-25 2021-06-25 Anesthesia Dennis Moe 1.2.840.1 1 [id number] [id number] Methodi 13:28:00 14:33:00 Event Jessica Godinez 94813.1.[address] 3.430.2.7 Hospit a .3.094741 l .8 2021-06-25 2021-06-25 Surgery Mickey, 1.2.840.1 [id number] 139390 0906 Methodi 12:15:00 13:35:00 Jez Hilton 77982.1.[address] 3.430.2.7 Hospit a .3.474664 l .8 2021-06-23 2021-06-23 Surgery Ashley Olmedo 1.2.840.1 [id number] 060713 0498 Methodi 09:40:00 11:00:[address] 3.430.2.7 Hospit a .3.379156 l .8 2021-06-23 2021-06-23 Travel 1.2.840.1 1.2.651.617 1153 749933 Methodi 00:00:00 00:00:[address] 3.430.2.7 0.2.7.3.698 Ho spita .3.252087 084.8 l .8 2021-06-20 2021-06-20 Documentat Provider, 1.2.840.1 [id number] 2 [id number] Methodi 00:00:00 00:00:00 ion Unknown 90114.1.[address] 3.430.2.7 Hospit a .3.244192 l .8 2021-06-19 2021-06-19 Outpatient [facility] [id number] 813 [place] 00:00:00 00:00:[address] ASHRITH [address] 2021-06-19 2021-06-19 Outpatient [facility] [id number] 814 [place] 00:00:00 00:00:[address] 2021-06-18 2021-06-18 Refill Adam, 1.2.840.1 [id number] 895 1940118 Methodi 00:00:00 00:00:[address] 3.430.2.7 Hospit a .3.763773 l .8 2021-06-18 2021-06-18 Travel 1.2.840.1 1.2.520.047 9308 804292 Methodi 00:00:00 00:00:[address] 3.430.2.7 0.2.7.3.698 Ho spita .3.220878 084.8 l .8 2021-06-18 2021-06-18 Documentat Topfer, 1.2.840.1 [id number] 873 9444364 Methodi 00:00:00 00:00:00 ion Sosa 05621.1.[address] 3.430.2.7 Hospit a .3.572649 l .8 2021-06-03 2021-06-03 Telephone Kashmir, 1.2.840.1 [id number] 21 [id number] Methodi 00:00:00 00:00:[address] 3.430.2.7 Hospit a .3.459941 l .8 2021-05-26 2021-05-26 Transplant Elijah, 1.2.840.1 [id number] 084 1593277 Methodi 14:30:00 14:44:19 Telemedici Rashad 02365.1.1 750 s t ne 3.430.2.7 Hospit a .3.591057 l .8 2021-05-26 2021-05-26 Telephone Medina, 1.2.840.1 [id number] 2 [id number] Methodi 00:00:00 00:00:[address] 3.430.2.7 Hospit a .3.219162 l .8 2021-05-26 2021-05-26 Alexy Contreras, 1.2.840.1 [id number] 298428 3401 Methodi 00:00:00 00:00:00 Only Sosa 31041.1.[address] 3.430.2.7 Hospit a .3.744982 l .8 2021-05-26 2021-05-26 Outpatient [facility] [id number] 857 [place] 00:00:00 00:00:00 ASHOSKAR [address] 2021-05-21 2021-05-21 Documentat Topfer, 1.2.840.1 [id number] 856 [id number] Methodi 00:00:00 00:00:00 ion Sosa 06336.1.[address] 3.430.2.7 Hospit a .3.414985 l .8 2021-05-21 2021-05-21 Documentat Topmanpreet, 1.2.840.1 [id number] 277 0949981 Methodi 00:00:00 00:00:00 ion Sosa 11150.1.1 084 3.430.2.7 Hospit a .3.151643 l .8 2021-05-14 2021-05-14 Outpatient ELIJAH [facility] [id number] 403 [place] 00:00:00 00:00:00 ASHRITH 662 Method i 2021-05-14 2021-05-14 Outpatient ELIJAH [facility] [id number] 438 [place] 00:00:00 00:00:00 ASHRITH [address] 2021-05-14 2021-05-14 Outpatient ELIJAH [facility] [id number] 438 [place] 00:00:00 00:00:00 ASHRITH 192 Method i 2021-04-10 2021-04-11 Outpatient HAL KAUR [facility] 679 [id number] [place] 00:00:00 00:00:00 917 Method i 2021-03-05 2021-03-05 Office ELVA OLMEDO [facility] 1.2.840.[address] [facility] 09:19:49 11:30:34 Visit AMBULATOR 350.1.13.21 College Y 0.2.7.2.686 of 169.8318471 Medi prem 300 e 2021-01-09 2021-01-09 Outpatient BANG [facility] [id number] 375 [place] 00:00:00 00:00:00 SOSA [address] 2021-01-08 2021-01-08 Outpatient HAL KAUR [facility] 787 [id number] [place] 00:00:00 00:00:[address] 2020-11-07 2020-11-07 Outpatient HAL KAUR [facility] [id number] [place] 00:00:00 00:00:00 765 [facility] i 2020-11-07 2020-11-07 Outpatient HAL KAUR [facility] [id number] [place] 00:00:00 00:00:[address] 2020-09-26 2020-09-26 Office Elva Olmedo [id number] [facility] 12:29:49 13:39:45 Visit Quiroz AMBULATOR 350.1.13.21 College Y 0.2.7.2.686 [id number] Medi prem 300 e 2020-08-28 2020-08-28 Outpatient [facility] [id number] [place] 00:00:00 00:00:00 YUNG, [address] 2020-08-27 2020-08-27 Outpatient TOMMYN, [facility] [id number] [place] 00:00:00 00:00:00 MILAN 213 Me thodi 2020-08-20 2020-08-21 Outpatient JENNIFER, [facility] [id number] [place] 00:00:00 00:00:00 MARLENE 972 Method i 2020-08-20 2020-08-20 Outpatient JENNIFER, [facility] [id number] [place] 00:00:00 00:00:00 MARLENE [address] 2020-08-20 2020-08-20 Outpatient [facility] [id number] [place] 00:00:00 00:00:00 YUNG, 253 Method i WILFRIDO 2020-08-19 2020-08-19 Outpatient JENNIFER, [facility] [id number] [place] 00:00:00 00:00:00 MARLENE 323 Method i 2020-08-19 2020-08-19 Outpatient JENNIFER, [facility] [id number] [place] 00:00:00 00:00:00 MARLENE [address] 2020-08-06 2020-08-06 Outpatient [facility] [id number] [place] 00:00:00 00:00:[address] 2020-06-24 2020-06-24 Outpatient JENNIFER, [facility] [id number] [place] 00:00:00 00:00:00 MARLENE [address] 2020-06-20 2020-06-20 Outpatient BANG, [facility] [id number] [place] 00:00:00 00:00:00 SOSA [address] 2020-06-18 2020-06-18 Outpatient BHIMARAJ, [facility] [id number] [place] 00:00:00 00:00:00 RAVINDER [address] 2020-06-18 2020-06-18 Outpatient JENNIFER, [facility] [id number] [place] 00:00:00 00:00:00 MARLENE [address] 2020-06-03 2020-06-03 Outpatient ELIJAH, [facility] [id number] [place] 00:00:00 00:00:00 ASHRITH [address] 2020-06-03 2020-06-03 Outpatient ELIJAH, [facility] [id number] [place] 00:00:00 00:00:00 BEVERLYRITH [address] 2020-05-01 2020-05-01 Outpatient BANG, [facility] [id number] [place] 00:00:00 00:00:00 SOSA [address] 2020-05-01 2020-05-01 Outpatient BANG, [facility] [id number] [place] 00:00:00 00:00:00 SOSA [address] 2020-04-12 2020-04-12 Outpatient JENNIFER, [facility] [id number] [place] 00:00:00 00:00:00 MARLENE [address] 2020-03-29 2020-03-29 Outpatient JENNIFER, [facility] [id number] [place] 00:00:00 00:00:00 MARLENE [address] 2020-03-21 2020-03-21 Outpatient TONYA, [facility] [id number] [place] 00:00:00 00:00:[address] 2020-03-21 2020-03-21 Outpatient TONYA, [facility] [id number] [place] 00:00:00 00:00:[address] 2020-02-02 2020-02-02 Outpatient BANG, [facility] [id number] [place] 00:00:00 00:00:00 SOSA [address] 2019-12-28 2019-12-28 Outpatient [facility] [id number] [place] 00:00:00 00:00:[address] 2019-12-28 2019-12-28 Outpatient INCAVO, [facility] [id number] [place] 00:00:00 00:00:00 JADEN [address] 2019-11-03 2019-11-03 Outpatient JUSTUS, [facility] [id number] [place] 00:00:00 00:00:00 KOSTAS [address] 2019-10-13 2019-10-13 Outpatient BANG, [facility] [id number] [place] 00:00:00 00:00:00 SOSA [address] 2019-09-29 2019-09-29 Dionne PELAEZ [facility] [id number] [place] 10:45:00 10:45:00 t; FUENTES PELAEZ M.D. [facility] olya Olson M.D. 2019-08-24 2019-08-24 Dionne PELAEZ [facility] [id number] [place] 09:30:00 09:30:00 t; FUENTES PELAEZ M.D. [facility] olya Olson M.D. 2019-08-02 2019-08-02 Outpatient INCAVO, [facility] [id number] [place] 00:00:00 00:00:00 JADEN 905 Method i 2019-08-02 2019-08-02 Outpatient INCAVO, [facility] [id number] [place] 00:00:00 00:00:00 JADEN 924 Method i 2019-08-01 2019-08-01 Office Elva Olmedo [facility] [id number] [facility] 10:12:03 13:36:22 Visit Quiroz AMBULATOR 350.1.13.21 College Y 0.2.7.2.686 of [id number] Medi prem 300 e 2019-07-27 2019-07-27 Outpatient INCAVO, [facility] [id number] [place] 00:00:00 00:00:00 JADEN 985 Method i 2019-04-25 2019-04-26 Inpatient INCAVO, [facility] [id number] [place] 00:00:00 00:00:00 JADEN 629 Method i 2019-04-17 2019-04-17 Outpatient IMARA, [facility] [id number] [place] 00:00:00 00:00:00 RAVINDER 819 Method i 2019-04-17 2019-04-17 Outpatient [facility] [id number] [place] 00:00:00 00:00:00 RAVINDER 735 Method i 2019-04-17 2019-04-17 [id number] [place] 00:00:00 00:00:00 RAVINDER 960 Method i 2019-04-06 2019-04-06 Outpatient CRISTINA [facility] [id number] [place] 00:00:00 00:00:00 JADEN Arvizu8 Method i 2018-02-01 2018-02-[address] [facility] [id number] [facility] 00:00:00 00:00:00 RACHELL Results Test Description Test Time Test Comments Results Result Comments Source Comprehensive metabolic panel 2022-04-22 15:28:00 Test Item Value Reference Range Interpretation Comme nts Glucose (test code = 136 mg/dL 65-139 Non-fa sting reference 2345-7) interval BUN (test code = 3094-0) 38 mg/dL 7-25 H Creatinine (test code = 1.53 mg/dL 0.70-1.28 H 2160-0) eGFR (test code = 8257) See_Comment L The eGFR is based on the CKD-EPI 202 1 equation. To ca lculate the new eGFR fr om a previous Creati nine or Cystatin Cresul t, go to https://www.kid franca.org /professionals/ kdoqi/g fr%5Fcalculator [Automated mess age] The system [employer] generated this result transmitted ref erence range: > OR = 6 0 mL/min/1.73m2. The reference range was not used to int erpret this result as normal/abnormal . BUN/creatinine ratio (test See_Comment H [Automated message] code = 3097-3) The system [facility] generated this result transmitted ref erence range: 6 - 22 ( calc). The reference r joseph was not used to interpret this result as normal/abnor mal. Sodium (test code = 135 mmol/L 643-183 3830-2) Potassium (test code = 4.8 mmol/L 3.5-5.3 2823-3) Chloride (test code = 99 mmol/L 98-110 2075-0) CO2 (test code = 2027-) 26 mmol/L 20-32 Calcium (test code = 9.3 mg/dL 8.6-10.3 39714-7) Protein (test code = 8.0 g/dL 6.1-8.1 2885-2) Albumin, S (test code = 3.7 g/dL 3.6-5.1 1751-7) Globulin, total (test code See_Comment H [Automated message] = 93133-0) The system whic h generated this result transmitted ref erence range: 1.9 - 3. 7 g/dL (calc). The ref erence range was not u sed to interpret this result as normal/abnor mal. Albumin/globulin ratio See_Comment L [Aut omated message] (test code = 1759-0) The s tem which generated this result transmitted ref erence range: 1.0 - 2. 5 (calc). The ref erence range was not u sed to interpret this result as normal/abnor mal. Total bilirubin (test code 0.8 mg/dL 0.2-1.2 = 1974-) Alkaline phosphatase (test 80 U/L 35-144 code = 6768-6) AST (test code = 1920-8) 22 U/L 10-35 ALT (test code = 1742-6) 11 U/L 9-46 KEITH (test code = KEITH) FASTING:NOAN UPDATE OR CORRECTION HAS BEEN MADE TO NAME FASTING: NO RAC (test code = RAC) Performing Organization Information: Site ID: RGA Name: [facility] Address: [address] [place] [address] Director: Marlene Garcia Lab Interpretation (test Abnormal code = 67319-8) [facility]kin[facility] [id number] 15:28:00 Test Item Value Reference Range Interpretation Comments Cholesterol, total 220 mg/dL See_Comment H [Automat ed (test code = 2093-3) message ] The system which generated this result transmitted reference range : <=200. The reference range was not used to interpret this result as normal/abnormal . HDL cholesterol 97 mg/dL See_Comment [Automated (test code = 2085-9) message ] The system which generated this result transmitted reference range : > OR = 40. The reference range was not used to interpret this result as normal/abnormal . Triglycerides (test 77 mg/dL See_Comment [Automa asael code = 2571-8) message] The system which generated this result transmitted reference range : <=150. The reference range was not used to interpret this result as normal/abnormal . LDL cholesterol mg/dL (calc) H Reference ra nge: calculated (test <100 Desira ble code = 76066-1) range <100 m g/dL for primary prevention; <70 mg/dL for patients with C HD or diabetic patients with > or = 2 CHD risk factors. LDL-C is now calculated using the Jared calculation, which is a validated novel method providin g better accuracy than the Friedewald equation in the estimation of LDL-C. Kalpesh S S et al. BERONICA. 2013;310(19): 0418-0390 (http://educati on .Lifeenergy .com/faq/EEG156 ) Cholesterol/HDL See_Comment [Automated ratio (test code = message] The 9830-1) system which generated this result transmitted reference range : <5.0 (calc). Th e reference range was not used to interpret this result as normal/abnormal . Non-HDL cholesterol See_Comment For daphne ents with (test code = diabetes plus 1 24719-1) major ASCVD ris k factor, treatin g to a non-HDL-C goal of <100 mg/dL (LDL-C of <70 mg/dL) is considered a therapeutic option. [Automated message] The system which generated this result transmitted reference range : <130 mg/dL (calc). The reference range was not used to interpret this result as normal/abnormal . KEITH (test code = FASTING:NOAN KEITH) UPDATE OR CORRECTION HAS BEEN MADE TO NAME FASTING: NO RAC (test code = Performing RAC) Organization Information: Site ID: RGA Name: [facility] Address: [address] [place] [address] Director: Marlene Garcia Lab Interpretation Abnormal (test code = 00171-7) [facility] CenterFerritin [id number] 15:28:00 Test Item Value Reference Range Interpretation Comments Ferritin level (test 112 ng/mL code = 2276-4) KEITH (test code = KEITH) FASTING:NOAN UPDATE OR CORRECTION HAS BEEN MADE TO NAME FASTING: NO RAC (test code = RAC) Performing Organization Information: Site ID: RGA [facility]: [facility] Address: [address] [place] [phone] Director: Marlene [facility] HospitalCBC with platelet and erbaheornkbe2391-17-77 15:28:00 Test Item Value Reference Range Interpretation Comments WBC (test code = See_Comment [Automated 6690-2) message] The system which generated this result transmitted reference range : 3.8 - 10.8 Thousand/uL. Th e reference range was not used to interpret this result as normal/abnormal . RBC (test code = See_Comment L [Automated 789-8) message] The system which generated this result transmitted reference range : 4.20 - 5.80 Million/uL. The reference range was not used to interpret this result as normal/abnormal . HGB (test code = 11.5 g/dL 13.2-17.1 L 718-7) HCT (test code = 33.0 % 38.5-50.0 L 4544-3) MCV (test code = 94.0 fL 80.0-100.0 787-2) MCH (test code = 32.8 pg 27.0-33.0 785-6) MCHC (test code = 34.8 g/dL 32.0-36.0 786-4) RDW (test code = 11.9 % 11.0-15.0 788-0) Platelet count (test See_Comment [Autom ated code = 777-3) message] The system which generated this result transmitted reference range : 140 - 400 Thousand/uL. Th e reference range was not used to interpret this result as normal/abnormal . MPV (test code = 9.6 fL 7.5-12.5 776-5) Neutrophils, See_Comment [Automated absolute (test code message] The = 751-8) system which generated this result transmitted reference range : 1,500 - 7,800 cells/uL. The reference range was not used to interpret this result as normal/abnormal . Lymphocytes, See_Comment [Automated absolute (test code message] The = 731-0) system which generated this result transmitted reference range : 850 - 3,900 cells/uL. The reference range was not used to interpret this result as normal/abnormal . Monocytes, absolute See_Comment [Automa asael (test code = 742-7) message] The system which generated this result transmitted reference range : 200 - 950 cells/uL. The reference range was not used to interpret this result as normal/abnormal . Eosinophils, See_Comment [Automated absolute (test code message] The = 711-2) system which generated this result transmitted reference range : 15 - 500 cells/uL. The reference range was not used to interpret this result as normal/abnormal . Basophils, absolute See_Comment [Automa asael (test code = 704-7) message] The system which generated this result transmitted reference range : 0 - 200 cells/u L. The reference range was not used to interpr et this result as normal/abnormal . Neutrophils (test 67.6 % code = 770-8) Lymphocytes (test 16.0 % code = 736-9) Monocytes (test code 11.7 % = 5905-5) Eosinophils (test 3.3 % code = 713-8) Basophils + RC (test 1.4 % code = 706-2) KEITH (test code = FASTING:NOAN KEITH) UPDATE OR CORRECTION HAS BEEN MADE TO NAME FASTING: NO RAC (test code = Performing RAC) Organization Information: Site ID: RGA Name: [facility] Address: [address] [place] [phone] Director: Marlene Garcia Lab Interpretation Abnormal (test code = 42620-3) [facility] [id number] 15:28:00 Test Item Value Reference Interpretation Comments Range Alpha 1.5 ng/mL See_Comment This test was performed fetoprotein using the Beckm an (test code = Coulterchemilum inescent 30411-9) method. Values obtained fromdifferent a ssay methods cannot be usedinterchange ably. AFP levels, regardl ess ofvalue, should not be interpreted as absoluteevidenc e of the presence or abs ence of disease. [Autom ated message] The sy stem which generated this result transmitted ref erence range: <=6.1. T he reference range was not used to interpr et this result as juan luis l/abnormal. KEITH (test code FASTING:NOAN = KEITH) UPDATE OR CORRECTION HAS BEEN MADE TO NAME FASTING: NO RAC (test code Performing = RAC) Organization Information: Site ID: IG Name: [facility] Address: [address] [place] [phone] Director: [facility] iron binding [id number] 15:28:00 Test Item Value Reference Range Interpretation Comments Iron level (test See_Comment [Automated code = 2498-4) message] The system which generated this result transmit asael reference range : 50 - 180 mcg/dL . The reference range was not u sed to interpret th is result as normal/abnormal . Iron binding See_Comment [Automated capacity (test message] The code = 2500-7) system which generated this result transmit asael reference range : 250 - 425 mcg/d L (calc). The reference range was not used to interpret this result as normal/abnormal . Iron saturation See_Comment [Automated (test code = message] The 2502-3) system which generated this result transmit asael reference range : 20 - 48 % (calc ). The reference range was not u sed to interpret th is result as normal/abnormal . KEITH (test code = FASTING:NOAN UPDATE KEITH) OR CORRECTION HAS BEEN MADE TO NAME FASTING: NO RAC (test code = Performing RAC) Organization Information: Site ID: BRITTON Name: [facility] Address: [address] [place] [phone] Director: Marlene BhandariMemorial Hermann [facility] HospitalParathyroid [id number] 16:46:00 Test Item Value Reference Interpretation Comments Range PTH (test 28 pg/mL 16-77 Interpretive G uide Intact code = PTH Calcium---- 2731-8) ---- ---Normal Parathyroid Nor mal NormalHypoparat hyroidism Low or Low Normal LowHyperparathy roidism Primary Normal or High High Secondary High Normal or Low Tertiary High HighNon-Parathy roid Hypercalcemia L ow or Low Normal High RAC (test Performing code = Organization RAC) Information: Site ID: GAUTAMA [facility]: [facility] Address: [address] [place] [phone] Director: Marlene CooperOhioHealth Grady Memorial HospitalPhosphorus [id number] 16:46:00 Test Item Value Reference Range Interpretation Comments Phosphorus (test code 3.3 mg/dL 2.1-4.3 = 2777-1) RAC (test code = RAC) Performing Organization Information: Site ID: [place] Name: [facility] Address: [address] [place] [phone] Director: Marlene Garcia [facility] LufkinUric acid [id number] 16:46:00 Test Item Value Reference Range Interpretation Comments Uric acid 7.6 mg/dL 4.0-8.0 Therapeutic tar get (test code = for gout patien ts: 3084-1) <6.0 mg/dL RAC (test Performing code = RAC) Organization Information: Site ID: [place] Name: [facility] Address: [address] [place] [phone] Director: Marlene Garcia [facility] LufkinUrinalysis, automated with [id number] 16:46:00 Test Item Value Reference Range Interpretation Comments Color, UA (test code DARK YELLOW YELLOW = 5778-6) Appearance (test CLEAR CLEAR code = 5767-9) Specific gravity, 1.001-1.035 urine (test code = 5811-5) pH, urine (test code 5.0-8.0 = 5803-2) Glucose, urine (test NEGATIVE NEGATIVE code = 46428-6) Bilirubin, UA (test NEGATIVE NEGATIVE code = 5770-3) Ketones, UA (test TRACE NEGATIVE A code = 2514-8) Occult blood, urine TRACE NEGATIVE A (test code = 5794-3) Protein, UA (test 3+ NEGATIVE A code = 64490-4) Nitrite, UA (test NEGATIVE NEGATIVE code = 5802-4) Leukocyte esterase, NEGATIVE NEGATIVE UA (test code = 5799-2) WBC, UA (test code = NONE SEEN See_Comment [Autom ated 5821-4) message] The system which generated this result transmitted reference range : < OR = 5 /HPF. The reference range was not used to interpr et this result as normal/abnormal . RBC, UA (test code = 0-2 See_Comment [Autom ated 89011-6) message] The system which generated this result transmitted reference range : < OR = 2 /HPF. The reference range was not used to interpr et this result as normal/abnormal . Squamous epithelial NONE SEEN See_Comment [Automa asael cells, UA (test code message ] The = 86753-9) system which generated this result transmitted reference range : < OR = 5 /HPF. The reference range was not used to interpr et this result as normal/abnormal . Bacteria, UA (test NONE SEEN NONE SEEN /HPF code = 5769-5) Hyaline casts, UA NONE SEEN NONE SEEN /LPF (test code = 5796-8) Note: (test code = This urin e was 8251-1) analyzed for th e presence of WBC , RBC, bacteria, casts, and othe r formed elements . Only those elements seen were reported. RAC (test code = Performing RAC) Organization Information: Site ID: [facility] Name: [facility] Address: [address] [place] [address] Director: Marlene Garcia Lab Interpretation Abnormal (test code = 18703-0) [facility] Hospitaline level, urine, [id number] 16:46:00 Test Item Value Reference Range Interpretation Comments Creatinine, urine 162 mg/dL 20-320 (mg/dL) (test code = 2161-8) RAC (test code = Performing Organization RAC) Information: Site ID: [facility] Name: [facility] Address: [address] [place] [address] Director: Marlene Garcia [facility] LufkinProtein, urine, [id number] 16:46:00 Test Item Value Reference Range Interpretation Comments Protein, urine random 172 mg/dL 5-25 H (test code = 2888-6) RAC (test code = RAC) Performing Organization Information: Site ID: [facility] Name: [facility] Address: [address] [place] [address] Director: Marlene Garcia Lab Interpretation (test Abnormal code = 09630-0) [facility]kinBap[facility] metabolic [id number] 16:07:00 Test Item Value Reference Range Interpretation Comments Glucose (test code = 166 mg/dL 65-139 H Non-fa sting 2345-7) reference interval BUN (test code = 43 mg/dL 7-25 H 3094-0) Creatinine (test 1.92 mg/dL 0.70-1.28 H code = 2160-0) eGFR (test code = See_Comment L The eGFR i s based 8257) on the CKD-EPI 2021 equation. To calculate the n ew eGFR from a previous Creatinine or Cystatin Cresul t, go to https://www.kid ne y.org/oksana grant/kdoqi/gfr%5F ca lculator [Automated message] The system which generated this result transmitted reference range : > OR = 60 mL/min/1.73m2. The reference range was not used to interpr et this result as normal/abnormal . BUN/creatinine ratio See_Comment [Autom ated (test code = 3097-3) message ] The system which generated this result transmitted reference range : 6 - 22 (calc). The reference range was not used to interpr et this result as normal/abnormal . Sodium (test code = 132 mmol/L 135-146 L 2951-2) Potassium (test code 4.5 mmol/L 3.5-5.3 = 2823-3) Chloride (test code 96 mmol/L 98-110 L = 2075-0) CO2 (test code = 28 mmol/L 20-32 9) Calcium (test code = 9.2 mg/dL 8.6-10.3 92787-9) KEITH (test code = FASTING:NO KEITH) FASTING: NO RAC (test code = Performing RAC) Organization Information: Site ID: [facility] Name: [facility] Address: [address] [place] [phone] Director: Marlene Garcia Lab Interpretation Abnormal (test code = 00681-8) [facility]ufkinMagnesium [id number] 16:07:00 Test Item Value Reference Range Interpretation Comments Magnesium (test code 1.5 mg/dL 1.5-2.5 = 46785-7) KEITH (test code = KEITH) FASTING:NO FASTING: NO RAC (test code = RAC) Performing Organization Information: Site ID: [facility] Name: [facility] Address: [address] [place] [phone] Director: Marlene Garcia [facility] LufkinVitamin D 25 hydroxy [id number] 16:07:00 Test Item Value Reference Range Interpretation Comments Vitamin D, 88 ng/mL 30-100 Vitamin D Statu s 25-hydroxy (test 25-OH Vitam in D: code = 1988-07) Deficiency: < 20 ng/mLInsufficie nc y: 20 - 29 ng/mLOptimal: > or = 30 ng/mL F or 25-OH Vitamin D testing on patients on D2-supplementat io n and patients for whom quantitation of D2 and D3 fractions is required, the QuestAssureD(TM )2 5-OH VIT D, (D2,D3), LC/MS/ MS is recommended: order code 9288 8 (patients >2yrs).See Note 1 KEITH (test code = FASTING:NO FASTING: KEITH) NO RAC (test code = Performing RAC) Organization Information: Site ID: RGA Name: [facility] Address: [address] [place] [phone] Director: [place] Zainab IsidroJoseWooster Community HospitalVitamin D 1,25 dihydroxy level, [id number] 16:07:00 Test Item Value Reference Range Interpretation Comments Vit D, 27 pg/mL 18-72 1,25-Dihydroxy (test code = 06461-7) Vitamin D2, 27 pg/mL 1,25 (OH)2 (test code = 1649-3) Vitamin D2, <8 pg/mL (Note)Vitamin D 3, 1,25 (OH)2 1,25(OH)2 indic ates (test code = both endogenous 67063-3) production and supplementation . Vitamin D2, 1,2 5(OH)2 is an indicator of exogenous sourc es, such as diet or supplementation . Interpretation and therapy are bas ed on measurement of Vitamin D, 1,25 (OH)2, Total. T his test was oliver spangler, and its analyti fernando performance characteristics have been determined by [employer] [facility] [facility]. It has not been cl eared or approved by the FDA. This assay has been validated pursuant to the CLIA regulations and is used for clinic al purposes. F[address] d [address] [address],[address] [place] [address] [phone] [address]Mich LAKISHA Kiran Note 1 Note 1 F or additional information, pl ease refer to http://educatio n.Ques tDiagnostics.co m/faq/ WGT780 (This li nk is being provided for informational/e ducati onal purposes o nly.) KEITH (test code FASTING:NO FASTING: = KEITH) NO RAC (test code Performing = RAC) Organization Information: Site ID: [id number] Name: [facility] Address: [address] [place] [address], [address] [place] [address] Director: José Alvares MD [facility]ng[facility] [id number] 00:16:00 Test Item Value Reference Range Interpretation Comments Fungus culture No growth Specimen isolate (test after 4 weeks InformationSp ecimen code = 580-1) of Source: Aspira teSpecimen incubation. Site: RIGHT HIP ASPIRATION [facility]kinAnaerobic [id number] 14:47:00 Test Item Value Reference Range Interpretation Comments Anaerobic No anaerobic Specimen culture isolate organisms InformationS pecimen (test code = isolated. Source: Aspirat eSpecimen 21739-1) Site: RIGHT HIP ASPIRATION [facility] HospitalAerobic [id number] 03:04:00 Test Item Value Reference Range Interpretation Comments Aerobic culture No growth Specimen isolate (test after 2 days. InformationSp ecimen code = 07137-7) Source: Aspi rateSpecimen Site: RIGHT HIP ASPIRATION [facility] HospitalFungus [id number] 18:37:00 Test Item Value Reference Range Interpretation Comments Fungus smear No fungi Specimen (test code = observed. InformationSpec imen Source: 1443) AspirateSpecime n Site: RIGHT HIP ASPIR ATION [facility] HospitalGram [id number] 05:08:00 Test Item Value Reference Range Interpretation Comments Gram stain No organisms Specimen isolate (test seen InformationSpe cimen code = 1469) Source: Aspirat eSpecimen Site: RIGHT HIP ASPIRATION [facility] HospitalCell count and differential, body [id number] 02:20:00 Test Item Value Reference Range Interpretation Comments Misc fluid type Right hip (test code = aspiration 49935-7) Color, fluid (test [place] code = 6824-7) Appearance, fluid Hazy (test code = 9335-1) RBC, fluid (test See_Comment [Automated code = 70273-7) message] The system which generated this result transmit asael reference range : /CMM. The reference range was not used to interpret this result as normal/abnormal . Nucleated cells, See_Comment [Automated fluid (test code = message] The 97527-9) system which generated this result transmit asael reference range : /CMM. The reference range was not used to interpret this result as normal/abnormal . Fluid mononuclear See Diff cell (test code = 1407) Neutrophils, fluid 98 % (test code = 79544-3) Lymphocytes, fluid 1 % (test code = 02362-8) Macrophages, fluid 1 % (test code = 04843-2) [facility]kinCrystal [id number] 21:37:00 Test Item Value Reference Range Interpretation Comments Crystal analysis Footnote Right Hip A spiration specimen type (test code = 1160) Monosodium urate (test None seen None seen code = 9689595) CPPD crystals (test None seen None seen code = 1135) [facility] protein electrophoresis, 24 [id number] 23:14:00 Test Item Value Reference Range Interpretation Comments Creatinine, 24 hour See_Comment [Automa asael urine (test code = message] The 2162-6) system which generated this result transmitted reference range : 0.50 - 2.15 g/2 4 h. The referenc e range was not used to interpr et this result as normal/abnormal . Protein/Creat Ratio See_Comment H [Automa asael (test code = message] The 44990-7) system which generated this result transmitted reference range : < OR = 0.114 mg/mg creat. Th e reference range was not used to interpret this result as normal/abnormal . Protein, 24 hour See_Comment H [Automated urine (test code = message] The 2889-4) system which generated this result transmitted reference range : <150 mg/24 h. T he reference range was not used to interpret this result as normal/abnormal . Albumin, urine (test 66 % code = 80392-3) Cklmp-2-gnigpgcq, 3 % urine (test code = 74572-5) Djrpp-2-xvbdfjxr, 6 % urine (test code = 50310-7) Beta globulin, urine 11 % (test code = 25371-1) Gamma globulin, 14 % urine (test code = 05174-7) Interpretation (test Albumi n and code = 63664-4) various glob ulin fractions detected on proteinelectrop ho resis. No abnormal protei n bands (Bence-Jonespro te inuria) madelaine PARKER (test code = SPLIT 10/01/2021 KEITH) FROM 7462154 URINE VOLUME: 2900/24 RAC (test code = Performing RAC) Organization Information: Site ID: IG [facility]: [facility] Address: [address] [place] [phone] Director: Dr. Marlene Garcia Lab Interpretation Abnormal (test code = 74512-4) [facility] [id number] 01:24:00 Test Item Value Reference Range Interpretation Comments Ionized calcium 4.9 mg/dL 4.8-5.6 (test code = 53571-7) KEITH (test code = FASTING:YESCOLLECTION KIT KEITH) GIVEN TO PATIENT. PATIENT ADVISED TO RETURN. FASTING: YES RAC (test code = Performing Organization RAC) Information: Site ID: RGA [facility]: [facility] Address: [address] [place] [phone] Director: Marlene Garcia [facility]2022-05-15 01:24:00 Test Item Value Reference Range Interpretation Comments GGT (test code = 24 U/L 3-70 2324-2) KEITH (test code = FASTING:YESCOLLECTION KIT KEITH) GIVEN TO PATIENT. PATIENT ADVISED TO RETURN. FASTING: YES RAC (test code = Performing Organization RAC) Information: Site ID: RGA [facility]: [facility] Address: [address] [place] [address] Director: Marlene Garcia [facility]2022-05-15 01:24:00 Test Item Value Reference Range Interpretation Comments Protein (test code = 7.8 g/dL 6.1-8.1 2885-2) Albumin, S (test 3.6 g/dL 3.8-4.8 L code = 2862-1) Fvnnq-9-rnvbyzcx 0.3 g/dL 0.2-0.3 (test code = 2865-4) Rgrlq-8-xunyvopl 0.8 g/dL 0.5-0.9 (test code = 2868-8) Beta-1 globulin 0.5 g/dL 0.4-0.6 (test code = 90813-7) Beta-2 globulin 0.7 g/dL 0.2-0.5 H (test code = 24814-7) Gamma globulin (test 2.0 g/dL 0.8-1.7 H code = 2874-6) Interpretation (test Consis tent with code = 91934-4) a chronic inflammatory pattern KEITH (test code = FASTING:YESCOLLECT KEITH) ION KIT GIVEN TO PATIENT. PATIENT ADVISED TO RETURN. FASTING: YES RAC (test code = Performing RAC) Organization Information: Site ID: IG Name: [facility] Address: [address] [place] [phone] Director: Dr. Marlene Garcia Lab Interpretation Abnormal (test code = 68505-2) [facility]kin[facility]oglob[facility] G, A, [id number] 01:24:00 Test Item Value Reference Range Interpretation Comments IgA (test code = 2458-8) 755 mg/dL 70-320 H IgG (test code = 2465-3) 1999 mg/dL 600-1540 H IgM (test code = 2472-9) 185 mg/dL 50-300 KEITH (test code = KEITH) FASTING:YESCOLLECTION KIT GIVEN TO PATIENT. PATIENT ADVISED TO RETURN. FASTING: YES RAC (test code = RAC) Performing Organization Information: Site ID: RGA Name: [facility] Address: [address] [place] [phone] Director: Marlene Garcia Lab Interpretation (test Abnormal code = 08203-9) [facility]kinProthrombin time with [id number] 01:24:00 Test Item Value Reference Range Interpretation Comments INR (test code = Reference R joseph 6301-6) 0.9-1.1Moderate -i ntensity Warfar in Therapy 2.0-3.0Higher-i nt ensity Warfarin Therapy 3.0-4.0 Prothrombin time See_Comment For additio nal (test code = information, 5902-2) please refer tohttp://educat io n.[employer]/faq/FAQ10 4( This link is being provided for informational/e du cational purpos es only.) [Automat ed message] The system which generated this result transmitted reference range : 9.0 - 11.5 sec. The reference range was not used to interpr et this result as normal/abnormal . KEITH (test code = FASTING:YESCOLLECTI KEITH) ON KIT GIVEN TO PATIENT. PATIENT ADVISED TO RETURN. FASTING: YES RAC (test code = Performing RAC) Organization Information: Site ID: RGA Name: [facility] Address: [address] [place] [phone] Director: Marlene Garcia [facility] LufkinImmunofixation, [id number] 01:24:00[facility]ationH[facility] IIPerforming Organization Information: Site ID: IG Name: [facility] Address: [address] [place] [address] Director: Dr. Marlene GarciaSt[facility] LufkinC-reactive protein 2021-09-22 20:43:00 Test Item Value Reference Range Interpretation Comments CRP (test code = 30.3 mg/L See_Comment H [Automated 1988-5) message] The system which generated this result transmitted reference range : <=8.0. The reference range was not used to interpret this result as normal/abnormal . KEITH (test code = FASTING:YES KEITH) FASTING: YES RAC (test code = Performing RAC) Organization Information: Site ID: RGA Name: [facility] Address: [address] [place] [phone] Director: Marlene Garcia Lab Interpretation Abnormal (test code = 91810-1) [facility] [id number] 20:43:00 Test Item Value Reference Range Interpretation Comments Sedimentation rate 41 mm/h See_Comment H [Automat ed (test code = 4537-7) message ] The system which generated this result transmitted reference range : < OR = 20. The reference range was not used to interpret this result as normal/abnormal . KEITH (test code = FASTING:YES KEITH) FASTING: YES RAC (test code = Performing RAC) Organization Information: Site ID: A Name: [facility] Address: [address] [place] [phone] Director: Marlene Garcia Lab Interpretation Abnormal (test code = 06405-4) [facility] [id number] 00:15:00 Test Item Value Reference Range Interpretation Comments AFB culture No growth Specimen isolate (test after 6 weeks InformationSp ecimen code = 543-9) of Source: FluidS pecimen incubation. Site: Wrist: 2 right wrist fluid [facility] 12 [id number] 00:26:34 Test Item Value Reference Range Interpretation Comments Ventricular rate (test code = 253) Atrial rate (test code = 255) CT interval (test code = 266) QRSD interval (test code = 260) QT interval (test code = 264) QTC interval (test code = 265) P axis 1 (test code = 267) QRS axis 1 (test code = 268) T wave axis (test code = 270) EKG impression (test Sinus code = 273) tachycardia-Possible Inferior infarct (cited on or before 23-JUN-2021)-Abnormal ECG-In automated comparison with ECG of 01-JUL-2021 01:55,-Nonspecific T wave abnormality no longer evident in Inferior leads- [facility] Pre/Post Hb-[id number] 05:09:44 Test Item Value Reference Range Interpretation Comments Ventricular rate (test code = 253) Atrial rate (test code = 255) CT interval (test code = 266) QRSD interval (test code = 260) QT interval (test code = 264) QTC interval (test code = 265) P axis 1 (test code = 267) QRS axis 1 (test code = 268) T wave axis (test code = 270) EKG impression (test Normal sinus code = 273) rhythm-Inferior infarct (cited on or before 23-JUN-2021)-Abnormal ECG-In automated comparison with ECG of 23-JUN-2021 21:01,-Minimal criteria for Anterior infarct are no longer present-Nonspecific T wave abnormality has replaced inverted T waves in Anterior leads-QT has lengthened-Electronica lly Signed By Yeimi Arriaza MD ([id number]) on 07/01/2021 11:09:43 PM [facility] [id number] 13:56:48 Test Item Value Reference Range Interpretation Comments POC glucose (test code 119 mg/dL 65-99 H Opera tor Name: Sonido = [id number]) Porsha ID: [id number] able: [facility] Notified receivables specialist Interpretation Abnormal (test code = 83134-7) [facility] [id number] 18:54:18 Test Item Value Reference Range Interpretation Comments Joint fluid No growth Specimen culture isolate after 4 days. Information Specimen (test code = Source: Joint 1634) FluidSpecimen S ite: Wrist [facility] [id number] 02:32:23 Test Item Value Reference Range Interpretation Comments AFB stain No acid fast Specimen (test code = bacilli (AFB) InformationSpe cimen 676-7) seen. Source: FluidSp ecimen Site: Wrist: 2 right wrist fluid [facility] [id number] 15:54:16 Test Item Value Reference Range Interpretation Comments Case number (test [id number] code = 7005550) Surgical pathology See link below for PDF report (test code = Lab Report 2255) Result status (test This is Supplemental code = 0094100) Report for [id number] [facility] HospitalARS-CoV-2 (COVID-19) RNA [Presence] in Respiratory specimen by JOEL with probe [id number] 10:04:10 Test Item Value Reference Range Interpretation Comments SARS-CoV-2 (COVID-19) RNA Not detected Not-Detected [Presence] in Respiratory specimen by JOEL with probe detection (test code = 27343-9) Whether patient is employed in a healthcare setting (test code = 50454-2) Whether the patient has symptoms related to condition of interest (test code = 66970-2) Patient was hospitalized because of this condition (test code = 97999-5) Whether the patient was admitted to intensive care unit (ICU) for condition of interest (test code = 59728-6) Whether patient resides in a congregate care setting (test code = 80967-0) [facility] RNA [Presence] in Respiratory specimen by JOEL with probe [id number] 13:47:54 Test Item Value Reference Range Interpretation Comments SARS-CoV-2 (COVID-19) RNA Not detected Not-Detected [Presence] in Respiratory specimen by JOEL with probe detection (test code = 57149-3) Whether patient is employed in a healthcare setting (test code = 16044-5) Whether the patient has symptoms related to condition of interest (test code = 64748-9) Patient was hospitalized because of this condition (test code = 80984-0) Whether the patient was admitted to intensive care unit (ICU) for condition of interest (test code = 47519-1) Whether patient resides in a congregate care setting (test code = 36121-9) [facility]cent[facility] Major Joint [id number] 10:09:00 EXAM: FLUOROSCOPY-GUIDED RIGHT HIP DIAGNOSTIC ASPIRATIONDATE: 10/09/2019 9:50 CDTINDICATION: - M25.551 Pain in right hipCOMPARISON: Bone scan dated 09/19/2019TECHNIQUE:Consent: An informed consent was obtained from the patient prior to theprocedure.Appropriate time out procedures were performed.The skinwas prepped and draped in the usual fashion under aseptic precautions.1% lidocaine was utilized for local anesthesia.Under fluoroscopic guidance a 20 gauge long spinal needle was used to accessthe hip joint.Approximately 2 cm from the level of slightly hemorrhagic fluid was aspirated.This was mixed with 0.5 mL of saline and sent for lab analysis.No immediate complications.Preprocedure pain score: 6/10Postprocedure pain score: 6/10FLUORO TIME: 0.04 minutesDAP: 1.3 mGy- ti8YPNSJLGT: Prosthetic right hip joint.IMPRESSION: Technically successful fluoroscopy-guided right hip diagnosticaspiration.--Read by: Ismael Nixon MDDictated Date/time: 10/09/19 11:02Electronically Signed by: Ismael Nixon MD 10/08/2010:06FINAL REPORTUT Physicians[U] XRAY HIP UNILATERAL WITH PELVIS WHEN PERFORMED 1 VW RIGHT [id number] 11:30:00Images acquired, not reported on this accession number.IA PhysiciansNM Bone scan 3 phase [id number] 08:30:00 PROCEDURE INFORMATION:Exam: NM Bone and/or Joint, 3 PhaseExam date and time: 09/19/2019 1:41 PMAge: 68 years oldClinical indication: Periprosthetic osteolysis of internal prosthetic right hipjoint, initial encounter; Pain due to internal orthopedic prosthetic devices,implants and grafts, initial encounter; Additional info: Right hip pain/righthip replacement 2nd time 04/2019TECHNIQUE:Imaging protocol:Three phase bone scan of the pelvis is performed using 25.5mCi of technetium 99m-MDP, which is administered intravenously.Other technique: IV Site: Left Antecubital IV Site: Angiographic imaging wasperformed in the frontal plane immediately after radiotracer administration at5 seconds/frame for 60 seconds. IV Site: Small field of view static imaging ofthe pelvis were then performed for blood pool imaging in the anterior,posterior, oblique, and lateral projections. IV Site: Three hour delayed smallfield of view static imaging of the pelvis were then performed for delayedimaging in the anterior, posterior, oblique, and lateral projections.COMPARISON:No relevant prior studies available.FINDINGS:Angiographic images: The radionuclide angiographic images show asymmetric softtissue uptake about the right hip.Blood pool images: The blood pool images show asymmetric soft tissue uptakeabout the right hip.Delayed imaging: The delayed images show photopenia in the region of the rightfemoral head and neck, compatible with right hip arthroplasty. Asymmetricuptake in the soft tissues about the right hip is seen.IMPRESSION:1. Postoperative changes of right hip arthroplasty. There is no evidence ofhardware loosening or infection.2. Diffuse soft tissue uptake about the right hip on all 3 phases. This may berelated to cellulitis or heterotopic ossification.Jaden Alexander MD On 09/19/2019 15:23:19; [id number]--Read by: Jaden Alexander MDDictated Date/time: 09/19/19 15:23Electronically Signed by: Jaden Alexander MD 09/18/2014:23FINAL REPORTUT Physicians[QL] SED RATE BY MODIFIED WESTERGREN 2019-09-16 08:27:00 Test Item Value Reference Range Interpretation Comments SED RATE BY MODIFIED ABEBEERGREN (test 79 mm/h < OR = 20 code = SED RATE BY MODIFIED ABEBEERGFARRUKH) [facility][QL] D-DIMER, [id number] 08:26:00 Test Item Value Reference Range Interpretation Comments D-DIMER, 5.65 <0.50 The D-Dimer aylin t is used QUANTITATIVE (test {mcg/mL frequentl y to excludean code = D-DIMER, FEU} acute PE or DVT. In QUANTITATIVE) patients with a low tomoderate clin ical risk assessment and a D-Dimerresult < 0.50 mcg/mL FEU, the likelihood of a PEor DVT is very low. Ho wever, a thromboembolice vent should not be e xcluded solely on the b asisof the D-Dimer level. Increased levels of D-Dim erare associated with a PE, DVT, DIC, malignancies,in flammation , sepsis, surge ry, trauma, pregnan cy,and advancing patie nt age.[Beronica 2006 11:295(2):199-2 07] For additional info rmation, please refer to:http://educa tion.[employer] /faq/FAQ14 9(This link is being provided for informational/e ducational purposes only) [facility][QL] CBC (INCLUDES DIFF/PLT)2019-09-16 08:26:00 Test Item Value Reference Range Interpretation Comments WHITE BLOOD CELL COUNT 6.4 {Thousand/u} 3.8-10.8 N (test code = WHITE BLOOD CELL COUNT) RED BLOOD CELL COUNT (test 3.52 {Million/uL} 4.20-5.80 code = RED BLOOD CELL COUNT) HEMAGLOBIN; Below Low 11.8 g/dl 13.2-17.1 Threshold (test code = 18091-2) HEMATOCRIT; Below Low 34.3 % 38.5-50.0 Threshold (test code = 4544-3) MCV; Normal (test code = 97.4 fL 80.0-100.0 N 787-2) MCHC; Normal (test code = 34.4 g/dl 32.0-36.0 N 34972-0) RDW; Normal (test code = 11.8 % 11.0-15.0 N 788-0) PLATELET COUNT; Normal 221 {Thousand/u} 140-400 N (test code = 777-3) MPV; Normal (test code = 9.9 fL 7.5-12.5 N 47742-7) ABSOLUTE NEUTROPHILS (test 4038 {cells/uL} 7477-0684 N code = ABSOLUTE NEUTROPHILS) ABSOLUTE LYMPHOCYTES (test 1133 {cells/uL} 850-3900 N code = ABSOLUTE LYMPHOCYTES) ABSOLUTE MONOCYTES (test 1018 {cells/uL} 200-950 code = ABSOLUTE MONOCYTES) ABSOLUTE EOSINOPHILS (test 160 {cells/uL} 15-500 N code = ABSOLUTE EOSINOPHILS) ABSOLUTE BASOPHILS (test 51 {cells/uL} 0-200 N code = ABSOLUTE BASOPHILS) NEUTROPHILS (test code = 63.1 % N NEUTROPHILS) LYMPHOCYTES (test code = 17.7 % N LYMPHOCYTES) MONOCYTES; Normal (test 15.9 % N code = 17476-6) EOSINOPHILS; Normal (test 2.5 % N code = 10056-9) BASOPHILS; Normal (test 0.8 % N code = 79823-9) [facility] PhysiciansTACROLIMUS [id number] 11:33:00 Test Item Value Reference Range Interpretation Comments TACROLIMUS BLOOD (BEAKER) (test code < ng/mL 10.0-20.0 L = 657) SIROLIMUS [id number] 11:01:00 Test Item Value Reference Range Interpretation Comments SIROLIMUS LEVEL BLOOD (BEAKER) 8.3 ng/mL 5.0-15.0 (test code = 806) BASIC METABOLIC [id number] 09:24:00 Test Item Value Reference Range Interpretation Comments SODIUM (BEAKER) 136 meq/L 136-145 (test code = 381) POTASSIUM (BEAKER) 4.5 meq/L 3.5-5.1 (test code = 379) CHLORIDE (BEAKER) 103 meq/L 98-107 (test code = 382) CO2 (BEAKER) (test 24 meq/L 22-29 code = 355) BLOOD UREA NITROGEN 24 mg/dL 7-21 H (BEAKER) (test code = 354) CREATININE (BEAKER) 1.35 mg/dL 0.57-1.25 H (test code = 358) GLUCOSE RANDOM 148 mg/dL 70-105 H (BEAKER) (test code = 652) CALCIUM (BEAKER) 8.8 mg/dL 8.4-10.2 (test code = 697) EGFR (BEAKER) (test 53 mL/min/1.73 ESTIMA ASAEL GFR IS code = 1092) sq m NOT ACCURATE CREATININE CLEARANCE IN PREDICTING GLOMERULAR FILTRATION RATE . ESTIMATED GFR I S NOT APPLICABLE FOR DIALYSIS PATIEN TS. CBC W/PLT COUNT & AUTO [id number] 09:07:00 Test Item Value Reference Range Interpretation Comments WHITE BLOOD CELL COUNT (BEAKER) 4.9 K/ L 3.5-10.5 (test code = 775) RED BLOOD CELL COUNT (BEAKER) 3.77 M/ L 4.63-6.08 L (test code = 761) HEMOGLOBIN (BEAKER) (test code = 11.3 GM/DL 13.7-17.5 L 410) HEMATOCRIT (BEAKER) (test code = 35.2 % 40.1-51.0 L 411) MEAN CORPUSCULAR VOLUME (BEAKER) 93.4 fL 79.0-92.2 H (test code = 753) MEAN CORPUSCULAR HEMOGLOBIN 30.0 pg 25.7-32.2 (BEAKER) (test code = 751) MEAN CORPUSCULAR HEMOGLOBIN CONC 32.1 GM/DL 32.3-36.5 L (BEAKER) (test code = 752) RED CELL DISTRIBUTION WIDTH 15.1 % 11.6-14.4 H (BEAKER) (test code = 412) PLATELET COUNT (BEAKER) (test 217 K/CU MM 150-450 code = 756) MEAN PLATELET VOLUME (BEAKER) 9.3 fL 9.4-12.4 L (test code = 754) NUCLEATED RED BLOOD CELLS 0 /100 WBC 0-0 (BEAKER) (test code = 413) NEUTROPHILS RELATIVE PERCENT 63 % (BEAKER) (test code = 429) LYMPHOCYTES RELATIVE PERCENT 19 % (BEAKER) (test code = 430) MONOCYTES RELATIVE PERCENT 11 % (BEAKER) (test code = 431) EOSINOPHILS RELATIVE PERCENT 5 % (BEAKER) (test code = 432) BASOPHILS RELATIVE PERCENT 1 % (BEAKER) (test code = 437) NEUTROPHILS ABSOLUTE COUNT 3.05 K/ L 1.78-5.38 (BEAKER) (test code = 670) LYMPHOCYTES ABSOLUTE COUNT 0.94 K/ L 1.32-3.57 L (BEAKER) (test code = 414) MONOCYTES ABSOLUTE COUNT (BEAKER) 0.54 K/ L 0.30-0.82 (test code = 415) EOSINOPHILS ABSOLUTE COUNT 0.26 K/ L 0.04-0.54 (BEAKER) (test code = 416) BASOPHILS ABSOLUTE COUNT (BEAKER) 0.04 K/ L 0.01-0.08 (test code = 417) IMMATURE GRANULOCYTES-RELATIVE 0 % 0-1 PERCENT (BEAKER) (test code = 2801) SIROLIMUS [id number] 11:08:00 Test Item Value Reference Range Interpretation Comments SIROLIMUS LEVEL BLOOD (BEAKER) 7.5 ng/mL 5.0-15.0 (test code = 806) BASIC METABOLIC [id number] 10:13:00 Test Item Value Reference Range Interpretation Comments SODIUM (BEAKER) 135 meq/L 136-145 L (test code = 381) POTASSIUM (BEAKER) 4.4 meq/L 3.5-5.1 (test code = 379) CHLORIDE (BEAKER) 102 meq/L 98-107 (test code = 382) CO2 (BEAKER) (test 22 meq/L 22-29 code = 355) BLOOD UREA NITROGEN 35 mg/dL 7-21 H (BEAKER) (test code = 354) CREATININE (BEAKER) 1.89 mg/dL 0.57-1.25 H (test code = 358) GLUCOSE RANDOM 136 mg/dL 70-105 H (BEAKER) (test code = 652) CALCIUM (BEAKER) 9.1 mg/dL 8.4-10.2 (test code = 697) EGFR (BEAKER) (test 36 mL/min/1.73 ESTIMA ASAEL GFR IS code = 1092) sq m NOT ACCURATE CREATININE CLEARANCE IN PREDICTING GLOMERULAR FILTRATION RATE . ESTIMATED GFR I S NOT APPLICABLE FOR DIALYSIS PATIEN TS. CBC W/PLT COUNT & AUTO [id number] 09:48:00 Test Item Value Reference Range Interpretation Comments WHITE BLOOD CELL COUNT (BEAKER) 4.1 K/ L 3.5-10.5 (test code = 775) RED BLOOD CELL COUNT (BEAKER) 3.56 M/ L 4.63-6.08 L (test code = 761) HEMOGLOBIN (BEAKER) (test code = 10.8 GM/DL 13.7-17.5 L 410) HEMATOCRIT (BEAKER) (test code = 32.6 % 40.1-51.0 L 411) MEAN CORPUSCULAR VOLUME (BEAKER) 91.6 fL 79.0-92.2 (test code = 753) MEAN CORPUSCULAR HEMOGLOBIN 30.3 pg 25.7-32.2 (BEAKER) (test code = 751) MEAN CORPUSCULAR HEMOGLOBIN CONC 33.1 GM/DL 32.3-36.5 (BEAKER) (test code = 752) RED CELL DISTRIBUTION WIDTH 11.5 % 11.6-14.4 L (BEAKER) (test code = 412) PLATELET COUNT (BEAKER) (test 237 K/CU MM 150-450 code = 756) MEAN PLATELET VOLUME (BEAKER) 9.9 fL 9.4-12.4 (test code = 754) NUCLEATED RED BLOOD CELLS 0 /100 WBC 0-0 (BEAKER) (test code = 413) NEUTROPHILS RELATIVE PERCENT 65 % (BEAKER) (test code = 429) LYMPHOCYTES RELATIVE PERCENT 14 % (BEAKER) (test code = 430) MONOCYTES RELATIVE PERCENT 16 % (BEAKER) (test code = 431) EOSINOPHILS RELATIVE PERCENT 3 % (BEAKER) (test code = 432) BASOPHILS RELATIVE PERCENT 1 % (BEAKER) (test code = 437) NEUTROPHILS ABSOLUTE COUNT 2.67 K/ L 1.78-5.38 (BEAKER) (test code = 670) LYMPHOCYTES ABSOLUTE COUNT 0.57 K/ L 1.32-3.57 L (BEAKER) (test code = 414) MONOCYTES ABSOLUTE COUNT (BEAKER) 0.67 K/ L 0.30-0.82 (test code = 415) EOSINOPHILS ABSOLUTE COUNT 0.11 K/ L 0.04-0.54 (BEAKER) (test code = 416) BASOPHILS ABSOLUTE COUNT (BEAKER) 0.03 K/ L 0.01-0.08 (test code = 417) IMMATURE GRANULOCYTES-RELATIVE 1 % 0-1 PERCENT (BEAKER) (test code = 2801) CT, CHEST, WITHOUT [id number] 12:52:00NEW BOTTLE DEALER OBERTONFINAL REPORT HISTORY: Lung nodule, <1cm COMPARISON : 06/08/2016 Technique : Multiple axial images of the chest were performed from the lung apices to the lung bases without the administration of IV contrast. Images were presented in both the lung and soft tissue windows. This exam was performed according to our departmental dose optimization program which includes automated exposure control, adjustment of the mA and/or kV according to patient size and/or use of iterative reconstructive technique. Comment: The thyroid gland is within normal limits. There is no hilar, mediastinal or axillary lymphadenopathy. There are some calcified mediastinal and right hilar lymph nodes. There is atherosclerotic vascular disease. The patient does have cardiomegaly. The visualized portions of the adrenal glands, pancreas, and kidneys are within normal limits. There are multiple splenic granulomata. The patient appears to be status post hepatic transplant. The patient is status post sternotomy. The patient does have gynecomastia. No pneumothorax or pleural effusion is seen. There are several patchy, groundglass nodular densities seen most significantly in the right lung. One of the areas is associated with calcification in the right middle lobe. There is some suture identified in the right lung involving the right upper lobe. Impression: No significant interval change in the patchy groundglass opacities in the right lung. While the findings may represent a chronic inflammatory or infectious process, continued follow-up should be considered. No new consolidation is seen. Signed: Fred Redmond MDReport Verified Date/Time: 02/17/2017 12:52:38 Reading Location: [facility] Diagnostic Imaging Reading Room - [place] [address] TACROLIMUS [id number] 18:43:00 Test Item Value Reference Range Interpretation Comments TACROLIMUS BLOOD (BEAKER) (test 14.3 ng/mL 10.0-20.0 code = 657) [id number] 11:39:00 Test Item Value Reference Range Interpretation Comments PROSTATE SPECIFIC ANTIGEN (BEAKER) 2.3 ng/mL 0.0-4.0 (test code = 844) LIPID [id number] 11:14:00 Test Item Value Reference Range Interpretation Comments TRIGLYCERIDES (BEAKER) (test code = 64 mg/dL 540) CHOLESTEROL (BEAKER) (test code = 187 mg/dL 631) HDL CHOLESTEROL (BEAKER) (test code 71 mg/dL = 976) LDL CHOLESTEROL CALCULATED (BEAKER) 103 mg/dL (test code = 633) Triglyceride Reference Range: Low Risk <150 Borderline 150-199 High Risk 200- 499 Very High Risk >=500Cholesterol Reference Range: Low Risk <200 Borderline 200-239 High Risk >240HDL Cholesterol Reference Range: Low Risk >=60 High Risk <40LDL Cholesterol Reference Range: Optimal <100 Near Optimal 100-129 Borderline 130-159 High 160-189 Very High >=190BASIC METABOLIC [id number] 11:14:00 Test Item Value Reference Range Interpretation Comments SODIUM (BEAKER) 137 meq/L 136-145 (test code = 381) POTASSIUM (BEAKER) 5.2 meq/L 3.5-5.1 H (test code = 379) CHLORIDE (BEAKER) 103 meq/L 98-107 (test code = 382) CO2 (BEAKER) (test 26 meq/L 22-29 code = 355) BLOOD UREA NITROGEN 43 mg/dL 7-21 H (BEAKER) (test code = 354) CREATININE (BEAKER) 1.57 mg/dL 0.57-1.25 H (test code = 358) GLUCOSE RANDOM 121 mg/dL 70-105 H (BEAKER) (test code = 652) CALCIUM (BEAKER) 9.5 mg/dL 8.4-10.2 (test code = 697) EGFR (BEAKER) (test 44 mL/min/1.73 ESTIMA ASAEL GFR IS code = 1092) sq m NOT ACCURATE CREATININE CLEARANCE IN PREDICTING GLOMERULAR FILTRATION RATE . ESTIMATED GFR I S NOT APPLICABLE FOR DIALYSIS PATIEN TS. HEPATIC FUNCTION [id number] 11:14:00 Test Item Value Reference Range Interpretation Comments TOTAL PROTEIN (BEAKER) (test code = 8.3 gm/dL 6.0-8.3 770) ALBUMIN (BEAKER) (test code = 1145) 3.8 g/dL 3.5-5.0 BILIRUBIN TOTAL (BEAKER) (test code 1.2 mg/dL 0.2-1.2 = 377) BILIRUBIN DIRECT (BEAKER) (test 0.5 mg/dL 0.1-0.5 code = 706) ALKALINE PHOSPHATASE (BEAKER) (test 73 U/L 40-150 code = 346) AST (SGOT) (BEAKER) (test code = 19 U/L 5-34 353) ALT (SGPT) (BEAKER) (test code = 12 U/L 6-55 347) CBC W/PLT COUNT & AUTO [id number] 10:19:00 Test Item Value Reference Range Interpretation Comments WHITE BLOOD CELL COUNT (BEAKER) 5.9 K/ L 3.5-10.5 (test code = 775) RED BLOOD CELL COUNT (BEAKER) 3.66 M/ L 4.63-6.08 L (test code = 761) HEMOGLOBIN (BEAKER) (test code = 12.1 GM/DL 13.7-17.5 L 410) HEMATOCRIT (BEAKER) (test code = 36.4 % 40.1-51.0 L 411) MEAN CORPUSCULAR VOLUME (BEAKER) 99.5 fL 79.0-92.2 H (test code = 753) MEAN CORPUSCULAR HEMOGLOBIN 33.1 pg 25.7-32.2 H (BEAKER) (test code = 751) MEAN CORPUSCULAR HEMOGLOBIN CONC 33.2 GM/DL 32.3-36.5 (BEAKER) (test code = 752) RED CELL DISTRIBUTION WIDTH 12.8 % 11.6-14.4 (BEAKER) (test code = 412) PLATELET COUNT (BEAKER) (test 195 K/CU MM 150-450 code = 756) MEAN PLATELET VOLUME (BEAKER) 9.9 fL 9.4-12.4 (test code = 754) NUCLEATED RED BLOOD CELLS 0 /100 WBC 0-0 (BEAKER) (test code = 413) NEUTROPHILS RELATIVE PERCENT 61 % (BEAKER) (test code = 429) LYMPHOCYTES RELATIVE PERCENT 24 % (BEAKER) (test code = 430) MONOCYTES RELATIVE PERCENT 11 % (BEAKER) (test code = 431) EOSINOPHILS RELATIVE PERCENT 3 % (BEAKER) (test code = 432) BASOPHILS RELATIVE PERCENT 1 % (BEAKER) (test code = 437) NEUTROPHILS ABSOLUTE COUNT 3.59 K/ L 1.78-5.38 (BEAKER) (test code = 670) LYMPHOCYTES ABSOLUTE COUNT 1.40 K/ L 1.32-3.57 (BEAKER) (test code = 414) MONOCYTES ABSOLUTE COUNT (BEAKER) 0.67 K/ L 0.30-0.82 (test code = 415) EOSINOPHILS ABSOLUTE COUNT 0.20 K/ L 0.04-0.54 (BEAKER) (test code = 416) BASOPHILS ABSOLUTE COUNT (BEAKER) 0.04 K/ L 0.01-0.08 (test code = 417) IMMATURE GRANULOCYTES-RELATIVE 0 % 0-1 PERCENT (BEAKER) (test code = 2801) RAD, CHEST, 2 [id number] 10:01:00NEW BOTTLE DEALER OBERTONReason for Exam:- >heart transplant annual follow upFINAL REPORT Chest two views compared to April 02, 2010 Discussion: There ispresumed nipple shadow projecting over the lateral right low chest. Right midlung staple line is noted. Cardiopulmonary appearance otherwise unremarkable. No effusion or pneumothorax. Bones and soft tissues unremarkable. Signed: Jaiden Olivares Verified Date/Time: 02/08/2017 10:01:37 Reading Location: [facility] Radiology Reading Room POCT- GLUCOSE [id number] 13:47:00 Test Item Value Reference Range Interpretation Comments POC-GLUCOSE METER 168 mg/dL 70-110 H TESTED AT [facility] 6720 (BEAKER) (test code = AMADA Bolaños [place] 1538) [address] TACR[place]US [id number] 13:05:00 Test Item Value Reference Range Interpretation Comments TACROLIMUS BLOOD (BEAKER) (test 8.8 ng/mL 10.0-20.0 L code = 657) BASIC METABOLIC [id number] 11:58:00 Test Item Value Reference Range Interpretation Comments SODIUM (BEAKER) 137 meq/L 136-145 (test code = 381) POTASSIUM (BEAKER) 5.0 meq/L 3.5-5.1 (test code = 379) CHLORIDE (BEAKER) 104 meq/L 98-107 (test code = 382) CO2 (BEAKER) (test 25 meq/L 22-29 code = 355) BLOOD UREA NITROGEN 37 mg/dL 7-21 H (BEAKER) (test code = 354) CREATININE (BEAKER) 1.56 mg/dL 0.57-1.25 H (test code = 358) GLUCOSE RANDOM 95 mg/dL 70-105 (BEAKER) (test code = 652) CALCIUM (BEAKER) 9.0 mg/dL 8.4-10.2 (test code = 697) EGFR (BEAKER) (test 45 mL/min/1.73 ESTIMA ASAEL GFR IS code = 1092) sq m NOT ACCURATE CREATININE CLEARANCE IN PREDICTING GLOMERULAR FILTRATION RATE . ESTIMATED GFR I S NOT APPLICABLE FOR DIALYSIS PATIEN TS. PROTHROMBIN [id number] 11:41:00 Test Item Value Reference Range Interpretation Comments PROTIME (BEAKER) (test code = 15.2 seconds 11.7-14.7 H 759) INR (BEAKER) (test code = 370) 1.2 <=5.9 RECOMMENDED COUMADIN/WARFARIN INR THERAPY RANGESSTANDARD DOSE: 2.0 - 3.0 Includes: PROPHYLAXIS for venous thrombosis, systemic embolization; TREATMENT for venous thrombosis and/or pulmonary embolus.HIGH RISK: Target INR is 2.5-3.5 for patients with mechanical heart valves.CBC (HEMOGRAM ONLY)2017-02-03 11:33:00 Test Item Value Reference Range Interpretation Comments WHITE BLOOD CELL COUNT (BEAKER) 5.3 K/ L 3.5-10.5 (test code = 775) RED BLOOD CELL COUNT (BEAKER) 3.52 M/ L 4.63-6.08 L (test code = 761) HEMOGLOBIN (BEAKER) (test code = 11.6 GM/DL 13.7-17.5 L 410) HEMATOCRIT (BEAKER) (test code = 35.4 % 40.1-51.0 L 411) MEAN CORPUSCULAR VOLUME (BEAKER) 100.6 fL 79.0-92.2 H (test code = 753) MEAN CORPUSCULAR HEMOGLOBIN 33.0 pg 25.7-32.2 H (BEAKER) (test code = 751) MEAN CORPUSCULAR HEMOGLOBIN CONC 32.8 GM/DL 32.3-36.5 (BEAKER) (test code = 752) RED CELL DISTRIBUTION WIDTH 13.0 % 11.6-14.4 (BEAKER) (test code = 412) PLATELET COUNT (BEAKER) (test 181 K/CU MM 150-450 code = 756) MEAN PLATELET VOLUME (BEAKER) 10.1 fL 9.4-12.4 (test code = 754) NUCLEATED RED BLOOD CELLS 0 /100 WBC 0-0 (BEAKER) (test code = 413)
[2022-05-17] MEDS ORDERED: MORPHINE 4 MG/ML SYR ONE (14:45)
[2022-05-17] MEDS ORDERED: ONDANSETRON 4 MG/2 ML VIAL ONE (14:45)
--- NOTE | 2022-05-17 15:32 | RAD REPORT ---
EXAM DESCRIPTION: RAD - Hand Left 3 View - 05/17/2022 3:22 pm CLINICAL HISTORY: PAIN COMPARISON: No comparisons FINDINGS: Diffuse osteopenia is seen. Moderate degenerative change involves the radiocarpal joint as well as the intercarpal joints of the wrist. Small intraarticular osseous loose bodies also suspecte d in the wrist. Mild soft tissue swelling is present. No acute fracture is evident.
--- NOTE | 2022-05-17 15:34 | RAD REPORT ---
EXAM DESCRIPTION: RAD - Forearm Left - 05/17/2022 3:22 pm CLINICAL HISTORY: PAIN COMPARISON: No comparisons FINDINGS: Diffuse osteopenia is seen. Moderate soft tissue swelling is seen along the dorsum of the wrist. No fractures appreciated. If pain persists, follow-up radiographs in 7-10 days would be advised.
--- NOTE | 2022-05-17 15:35 | RAD REPORT ---
EXAM DESCRIPTION: RAD - Knee Right 3 View - 05/17/2022 3:22 pm CLINICAL HISTORY: PAIN COMPARISON: No comparisons FINDINGS: Advanced medial compartment space narrowing with osteophytes compatible with osteoarthriti s. Small suprapatellar joint effusion. No acute fracture evident.
--- NOTE | 2022-05-17 16:54 | ER ---
Nurse's Notes [facility] Name: Fareed Huertas Age: 71 yrs Sex: Male : 1950 Arrival Date: 05/17/2022 Time: 14:14 Bed 6 Private MD: Diagnosis: Fall on same level from slipping, tripping and stumbling without subsequent striking against object;Pain in right knee;Sprain of unspecified part of left wrist and hand Presentation: 05/17 14:24 Chief complaint: Left wrist and right knee pain after mechanical fall from standing hb yesterday. Denies other injuries. Negative LOC. Coronavirus screen: At this time, the client does not indicate any symptoms associated with coronavirus-19. Ebola Screen: No symptoms or risks identified at this time. Initial Sepsis Screen: Does the patient meet any 2 criteria? No. Patient's initial sepsis screen is negative. Does the patient have a suspected source of infection? No. Patient's initial sepsis screen is negative. Risk Assessment: Do you want to hurt yourself or someone else? Patient reports no desire to harm self or others. Onset of symptoms was May 16, 2022. 14:24 Method Of Arrival: Wheelchair hb 14:24 Acuity: NANI 3 hb Triage Assessment: 14:30 General: Appears distressed, uncomfortable, Behavior is cooperative, appropriate for bp age, anxious. Pain: Complains of pain in left wrist and left knee. EENT: No deficits noted. Neuro: No deficits noted. Cardiovascular: No deficits noted. Respiratory: No deficits noted. GI: No signs and/or symptoms were reported involving the gastrointestinal system. : No signs and/or symptoms were reported regarding the genitourinary system. Derm: No deficits noted. Musculoskeletal: Swelling present in left wrist. Historical: - Allergies: 14:26 tramadol; hb 14:27 Heparin; hb - PSHx: 14:27 Heart Transplant; Liver Transplant; Hip Replacement - Right; hb Screenin:22 [facility] ED Fall Risk Assessment (Adult) History of falling in the last 3 months, bp including since admission No falls in past 3 months (0 pts). Abuse screen: Denies threats or abuse. Denies injuries from another. Nutritional screening: No deficits noted. Tuberculosis screening: No symptoms or risk factors identified. Assessment: 14:30 General: SEE TRIAGE NOTE. bp 16:30 Reassessment: LUE SUGAR TONG SPLINT PLACED. bp 17:22 Reassessment: PT DC HOME WITH FAMILY. bp Vital Signs: 14:24 BP 147 / 99; Pulse 89; Resp 16; Temp 98.3(TE); Pulse Ox 100% on R/A; Weight 81.65 kg; hb Height 6 ft. 2 in. (187.96 cm); Pain 10/10; 17:22 BP 135 / 89; Pulse 91; Resp 18; Pulse Ox 100% ; bp 14:24 Body Mass Index 23.11 (81.65 kg, 187.96 cm) hb ED Course: 14:14 Patient arrived in ED. as 14:17 [facility] kb 14:17 Jayme Holland MD is Attending Physician. kb 14:26 Triage completed. hb 14:27 Arm band placed on. hb 14:33 Chele Wilkerson, RN is Primary Nurse. bp 14:45 Inserted saline lock: 22 gauge in right forearm, using aseptic technique. Blood bp collected. 15:24 Forearm Left XRAY In Process Unspecified. EDMS 15:24 Hand Left 3 View XRAY In Process Unspecified. EDMS 15:24 Knee Right 3 View XRAY In Process Unspecified. EDMS 16:46 Orthoglass splint: Sugar tong splint applied on left arm. bp 17:22 Patient has correct armband on for positive identification. Bed in low position. Call bp light in reach. Side rails up X2. Adult w/ patient. 17:22 No provider procedures requiring assistance completed. IV discontinued, intact, bp bleeding controlled, No redness/swelling at site. Pressure dressing applied. Administered Medications: 14:45 Drug: morphine 4 mg Route: IVP; Infused Over: 4 mins; Site: right forearm; bp 17:22 Follow up: Response: Pain is decreased bp 14:45 Drug: Zofran (Ondansetron) 4 mg Route: IVP; Site: right forearm; bp 17:22 Follow up: Response: No adverse reaction bp Medication: 17:22 VIS not applicable for this client. bp Outcome: 16:53 Discharge ordered by . kb 17:22 Discharged to home via wheelchair, with family. bp 17:22 Condition: stable 17:22 Discharge instructions given to patient, family, Instructed on discharge instructions, follow up and referral plans. Demonstrated understanding of instructions, follow-up care, medications, splint care, Prescriptions given X 2. 17:24 Patient left the ED. bp Signatures: Dispatcher [employer] Janie Faria, CLARI BIANCHI-Elisa Lawton Heather, CHIDI RN Chele Akers RN RN bp Corrections: (The following items were deleted from the chart) 14:28 14:24 Acuity: NANI 4 hb hb
--- NOTE | 2022-05-17 16:54 | EDPHYS ---
Physician Documentation [facility] Name: Fareed Huertas Age: 71 yrs Sex: Male : 1950 Arrival Date: 05/17/2022 Time: 14:14 Bed 6 Private MD: ED Physician Jayme Holland HPI: 05/17 17:31 This 71 yrs old Male presents to ER via Wheelchair with complaints of Fall Injury, Knee kb Pain, Wrist Pain. 17:31 Details of fall: The patient fell from an upright position, while walking. Onset: The kb symptoms/episode began/occurred yesterday. Associated injuries: The patient sustained right knee, painful injury, left wrist and left hand, decreased range of motion, painful injury. Severity of symptoms: At their worst the symptoms were moderate, in the emergency department the symptoms are unchanged. The patient has not experienced similar symptoms in the past. The patient has not recently seen a physician. Pt reports pain to right knee and left wrist/hand after a fall yesterday caused by tripping over power cord. Historical: - Allergies: 14:26 tramadol; hb 14:27 Heparin; hb - PSHx: 14:27 Heart Transplant; Liver Transplant; Hip Replacement - Right; hb ROS: 17:30 Constitutional: Negative for fever, chills, and weight loss. kb 17:30 MS/extremity: Positive for decreased range of motion, pain, tenderness, of the left wrist, left hand and right knee. 17:30 All other systems are negative. Exam: 17:30 Constitutional: This is a well developed, well nourished patient who is awake, alert, kb and in no acute distress. Head/Face: Normocephalic, atraumatic. ENT: Moist Mucous membranes Cardiovascular: Regular rate and rhythm with a normal S1 and S2. No gallops, murmurs, or rubs. No pulse deficits. Respiratory: Respirations even and unlabored. No increased work of breathing. Talking in full sentences Abdomen/GI: Soft, non-tender. No distention Skin: Warm, dry with normal turgor. Normal color. Neuro: Awake and alert, GCS 15, oriented to person, place, time, and situation. Moves all extremities. Normal gait. Psych: Awake, alert, with orientation to person, place and time. Behavior, mood, and affect are within normal limits. 17:30 Musculoskeletal/extremity: Extremities: grossly normal except: noted in the left wrist, left hand and right knee: decreased ROM, pain, tenderness, ROM: limited active range of motion due to pain, Circulation is intact in all extremities. Sensation intact. Weight bearing: can bear weight with assistance only. Vital Signs: 14:24 BP 147 / 99; Pulse 89; Resp 16; Temp 98.3(TE); Pulse Ox 100% on R/A; Weight 81.65 kg; hb Height 6 ft. 2 in. (187.96 cm); Pain 10/10; 17:22 BP 135 / 89; Pulse 91; Resp 18; Pulse Ox 100% ; bp 14:24 Body Mass Index 23.11 (81.65 kg, 187.96 cm) hb Procedures: 16:53 Splinting: Splint applied to left arm using Orthoglass splint, applied by nurse. kb Examined by me, post splint application: neurovascular intact, 2+ distal pulses palpable, brisk capillary refill noted, Patient tolerated well. MDM: 14:26 Patient medically screened. kb 16:52 Data reviewed: vital signs, nurses notes. Data interpreted: Pulse oximetry: on room air kb is 100 %. Interpretation: normal. Counseling: I had a detailed discussion with the patient and/or guardian regarding: the historical points, exam findings, and any diagnostic results supporting the discharge/admit diagnosis, radiology results, the need for outpatient follow up, a orthopedic surgeon, to return to the emergency department if symptoms worsen or persist or if there are any questions or concerns that arise at home. ED course: Pt has ortho at [facility] he will follow up with. 05/17 14:27 Order name: Forearm Left XRAY; Complete Time: 15:50 kb 05/17 14:27 Order name: Hand Left 3 View XRAY; Complete Time: 15:50 kb 05/17 14:27 Order name: Knee Right 3 View XRAY; Complete Time: 15:50 kb 05/17 14:27 Order name: IV Start; Complete Time: 14:55 kb 05/17 15:51 Order name: Sugar Tong Forearm Splint; Complete Time: 16:46 kb Administered Medications: 14:45 Drug: morphine 4 mg Route: IVP; Infused Over: 4 mins; Site: right forearm; bp 17:22 Follow up: Response: Pain is decreased bp 14:45 Drug: Zofran (Ondansetron) 4 mg Route: IVP; Site: right forearm; bp 17:22 Follow up: Response: No adverse reaction bp Disposition Summary: 05/17/22 16:53 Discharge Ordered Location: Home kb Condition: Stable kb Diagnosis - Fall on same level from slipping, tripping and stumbling without subsequent kb striking against object - Pain in right knee kb - Sprain of unspecified part of left wrist and hand kb Followup: kb - With: Emergency Department - When: As needed - Reason: Worsening of condition Followup: kb - With: Private Physician - When: 2 - 3 days - Reason: Recheck today's complaints, Continuance of care, Re-evaluation by your physician Discharge Instructions: - Discharge Summary Sheet kb - Musculoskeletal Pain kb - Wrist Splint, Adult, [id number] kb - Wrist Sprain, Adult kb Forms: - Medication Reconciliation Form kb - Thank You Letter kb - Antibiotic Education kb - Prescription Opioid Use kb Prescriptions: - Diclofenac Sodium 75 mg Oral tablet,delayed release (DR/EC) - take 1 tablet by ORAL route 2 times per day As needed; 30 tablet; Refills: 0, kb Product Selection Permitted - Tylenol-Codeine #3 300 mg-30 mg Oral - take 1 tablet by ORAL route every 4-6 hours As needed; 12 tablet; Refills: 0, kb Product Selection Permitted Signatures: Dispatcher [employer] Janie Faira, CLARI BIANCHI-Bernadette Bedolla, RN RN Chele Akers, RN RN bp
[2022-05-17 17:40] VITALS: TEMP 98.3; O2SAT 100
[2022-05-17 17:45] VITALS: BP 135/89
== END 2022-05-17 17:24 | disposition home or self-care (01) ==
LOC: ER 14:12
PROC: 2W3BX1Z Immobilization of Left Upper Arm using Splint (ICD-10-PCS; principal; 2022-05-17)
DX: S63.92XA Sprain of unspecified part of left wrist and hand, initial encounter (principal); M25.561 Pain in right knee; W01.0XXA Fall on same level from slipping, tripping and stumbling without subsequent striking against object, initial encounter; Z88.5 Allergy status to narcotic agent; Z88.8 Allergy status to other drugs, medicaments and biological substances; Z94.1 Heart transplant status; Z94.4 Liver transplant status
CPT/HCPCS: 73130; 73090; 73562; 29125; J2405; 96374; 96375; 99284